=== PATIENT | female | born 1955 | race Caucasian/White ===

== ENCOUNTER 2024-03-01 13:14 | Inpatient (IN) | payer MEDICARE, MEDICAID ==
[~2024-03-01] VITALS: Ht 172.7 cm; Wt 127.5 kg
--- NOTE | 2024-03-01 14:30 | ED.PDOC ---
Musculoskeletal HPI Comments 68-year-old female with PMHx Dermatitis/Cellulitis brought in by EMS presents with a chief complaint of dermatitis and cellulitis to her bilaterally lower extremities and bleeding varicose veins to her left lower extremity. Patient states that the cellulitis and dermatitis has been present for the past x 1 month. Patient has diffuse dermatitis and cellulitis to her bilateral lower legs. Patient is bed bound and not able to apply weight without pain to her legs. Chief Complaint: Lower Extremity Time Seen by MD: 14:02 Primary Care Provider: unknown Reviewed Notes: Medications, Allergies Allergies: Coded Allergies: NO KNOWN ALLERGIES (Unverified , 03/23/10) Information Source: Patient Mode of Arrival: EMS Location: Bilateral Extremity Location: Ankle, Leg Timing: Months Prehospital treatment: None Severity: Severe Able to Move Extremity: Yes Bear Weight: No Pain: Moderate Hand Dominance: Right Mechanism: Spontaneous Circumstances: Spontaneous Symptoms: Swelling, Pain, Erythema DVT Risk Factors: NONE Last Tetanus: Unknown Past Medical History Past Medical History (Other): DERMATITIS Surgical History: Denies all surgeries DIRECTOR DIGITAL CATALOGUE History: Denies all DIRECTOR DIGITAL CATALOGUE Hx Family History Family History: Reviewed,noncontributory to illness Social History Smoker: Non-Smoker Alcohol: Denies ETOH Use Drugs: Denies Drug Use Lives In: Home Constitutional: denies: chills, diaphoresis, fatigue, fever, malaise, sweats, weakness, others EENTM: denies: blurred vision, double vision, ear bleeding, ear discharge, ear drainage, ear pain, ear ringing, eye pain, eye redness, hearing loss, mouth pain, mouth swelling, nasal discharge, nose bleeding, nose congestion, nose pain, photophobia, tearing, throat pain, throat swelling, voice changes, others Respiratory: denies: cough, hemoptysis, orthopnea, SOB at rest, shortness of breath, SOB with excertion, stridor, wheezing, others Cardiovascular: denies: chest pain, dizzy spells, diaphoresis, Dyspnea on exertion, edema, irregular heart beat, left arm pain, lightheadedness, palpitations, PND, syncope, others Gastrointestinal: denies: abdomen distended, abdominal pain, blood streaked bowels, constipated, diarrhea, dysphagia, difficulty swallowing, hematemesis, melena, nausea, poor appetite, poor fluid intake, rectal bleeding, rectal pain, vomiting, others Genitourinary: denies: abnormal vagina bleeding, burning, dyspareunia, dysuria, flank pain, frequency, hematuria, incontinence, pain, , vagina discharge, urgency, others Neurological: denies: dizziness, fainting, headache, left sided numbness, left sided weakness, numbness, paresthesia, pre-existing deficit, right sided numbness, right sided weakness, seizure, speech problems, tingling, tremors, weakness, others Musculoskeletal: denies: back pain, gout, joint pain, joint swelling, muscle pain, muscle stiffness, neck pain, others Integumetry: reports: wounds; denies: bruises, change in color, change in hair/nails, dryness, laceration, lesions, lumps, rash, others Allergic/Immunocompromised: denies: Difficulty Healing, Frequent Infections, Hives, Itching, others Hematologic/Lymphatic: denies: anemia, blood clots, easy bleeding, easy bruising, swollen glands, others Endocrine: denies: excessive hunger, excessive sweating, excessive thirst, excessive urination, flushing, intolerance to cold, intolerance to heat, unexplained weight gain, unexplained weight loss, others Psychiatric: denies: anxiety, bipolar disorder, depression, hopeless, panic disorder, schizophrenia, sleepless, suicidal, others All Other Systems: Reviewed and Negative Physical Exam General Appearance: Moderate Distress, Normal HEENT: Normal ENT Inspection, Pharynx Normal, TMs Normal Neck: Full Range of Motion, Non-Tender, Normal, Normal Inspection Respiratory: Chest Non-Tender, Lungs Clear, No Accessory Muscle Use, No Resp iratory Distress, Normal Breath Sounds Cardiovascular: No Edema, No JVD, No Murmur, No Gallop, Normal Peripheral Pulses, Regular Rate/Rhythm Breast Exam: Deferred Gastrointestinal: No Organomegaly, Non Tender, No Pulsatile Mass, Normal Bowel Sounds, Soft Genitalia: Deferred Pelvic: Deferred Rectal: Deferred Extremities: Decreased range of motion, Pedal edema, Other (DRESSING UNWRAPPED, VERICOSE VEIN OOZING, BLOODY, AND DIFFUSE CELLULITIS BILATERALLY) Musculoskeletal : Apperance: Normal Neurologic: Alert, team leader/research psychologist II-XII nml as Tested, No Motor Deficits, Normal Affect, Normal Mood, No Sensory Deficits Cerebellar Function: Normal Reflexes: Normal Skin: Dry, Normal Color, Warm Lymphatic: No Adenopathy Was a procedure done? Was a procedure done?: No Differential Diagnosis EXT Differential Diagnosis: Cellulitis Other Differential Diagnosis Impetigo, necrotizing fasciitis, sepsis, severe anemia due to acute blood loss, cellulitis X-Ray, Labs, Meds, VS Vital Signs Date Time Temp Pulse Resp B/P (MAP) Pulse Ox O2 Delivery O2 Flow Rate FiO2 03/01/24 15:12 82 18 95 Room Air* 0 21 03/01/24 15:04 98.7 82 17 126/61 (82) 96 98.7 03/01/24 15:04 82 17 96 Room Air 03/01/24 13:29 98.1 88 16 136/72 (93) 100 Lab Test 03/01/24 17:50 03/01/24 15:50 Range/Units Lactic Acid Level Pending 3.2 *H 0.4-2.0 mmol/L White Blood Count 26.5 H 4.4-10.8 10^3/uL Red Blood Count 4.48 4.0-5.20 10^6/uL Hemoglobin 13.1 12.2-16.2 g/dL Hematocrit 40.2 36.0-46.0 % Mean Corpuscular Volume 89.8 80.0-100.0 fL Mean Corpuscular Hemoglobin 29.2 28.0-32.0 pg Mean Corpuscular Hemoglobin Concent 32.5 32.0-36.0 g/dL Red Cell Distribution Width 13.5 11.8-14.3 % Platelet Count 397 140-450 10^3/uL Mean Platelet Volume 7.7 6.9-10.8 fL Neutrophils (%) (Auto) 37.0-80.0 % Lymphocytes (%) (Auto) 10.0-50.0 % Monocytes (%) (Auto) 0.0-12.0 % Eosinophils (%) (Auto) 0.0-7.0 % Basophils (%) (Auto) 0.0-2.0 % Neutrophils # (Auto) 1.6-8.6 10 ^3/uL Lymphocytes # (Auto) 0.4-5.4 10 ^3/uL Monocytes # (Auto) 0-1.3 10 ^3/uL Eosinophils # (Auto) 0-0.8 10 ^3/uL Basophils # (Auto) 0-0.2 10 ^3/uL Differential Total Cells Counted 100.0 100 Neutrophils % (Manual) 89 H 37.0-80.0 Band Neutrophils % (Manual) 0 Lymphocytes % (Manual) 8 L 10.0-50.0 Monocytes % (Manual) 3 0-12 Eosinophils % (Manual) 0 0-7 Basophils % (Manual) 0 0.0-2.0 Metamyelocytes % (manual) 0 Myelocytes % (Manual) 0 Promyelocytes % (Manual) 0 Blast Cells % (Manual) 0 Nucleated Red Blood Cells % Reactive Lymphocytes 0 Platelet Estimate Adequate Sodium Level 132 L 136-145 mmol/L Potassium Level 4.7 3.5-5.1 mmol/L Chloride Level 103 98-107 mmol/L Carbon Dioxide Level 20 20-31 mmol/L Anion Gap 9 5-15 Blood Urea Nitrogen 16 9-23 mg/dL Creatinine 1.04 H 0.550-1.02 mg/dL Glomerular Filtration Rate Calc 58 >90 mL/min BUN/Creatinine Ratio 15.4 10.0-20.0 Serum Glucose 130 H 74-106 mg/dL Calcium Level 9.2 8.7-10.4 mg/dL Total Bilirubin 0.7 0.2-1.0 mg/dL Aspartate Amino Transferase (AST) 24 13-40 U/L Alanine Aminotransferase (ALT) 25 7-40 U/L Alkaline Phosphatase 77 46-116 U/L Total Protein 7.1 5.7-8.2 g/dL Albumin 4.2 3.2-4.8 g/dL Current Medications Medications (Trade) Dose Ordered Sig/Kymberly Route Start Time Stop Time Status Last Admin Vancomycin HCl 250 ml @ 250 mls/hr ONCE ONCE IV 03/01/24 14:45 03/01/24 15:44 DC 03/01/24 14:57 68-year-old female presents here with acute bleed to her left lower extremity. She has active bleeding to the left lower extremity dorsal foot. Diogo and myself have held pressure to the wound to stop bleeding. Additionally patient has evidence of diffuse cellulitis which appears to be infected with impetigo to bilateral lower extremities. She states this has been occurring x1 month and she has not been on antibiotics. I am concerned for acute sepsis. Blood work has been done which demonstrates a leukocytosis of 26. A lactic acid of 3.2,. Patient has been started on vancomycin IV and a 30 cc/kilos bolus has been written for the patient. Patient's blood pressure is stable here. Despite patient's active bleeding, hemoglobin is within normal range at 13.1. However this could be falsely high given the acute nature of the bleed. At this time bleeding has been controlled with pressure. Hospitalist team has been contacted for admission. Time of 1ST Reevaluation: 14:44 Reevaluation 1ST: Unchanged Patient Education/Counseling: Diagnosis, Treatment, Prognosis Family Education/Counseling: Diagnosis, Treatment, Prognosis Departure 1 Departure Time of Disposition: 15:30 Impression: Primary Impression: Bilateral cellulitis of lower leg Additional Impressions: Sepsis Qualified Codes: A41.9 - Sepsis, unspecified organism; R65.20 - Severe sepsis without septic shock Acute hemorrhage Disposition: ADMITTED INPATIENT Condition: Critical Critical Care Note Critical Care Time?: Yes (35 min-critical care time only) Critical care comment: Time spent immediately evaluated the patient given acute hemorrhage, multiple re-evaluation, ordering blood work, interpreting laboratory results, speaking with the patient, speaking to admitting team. Stability Stability form required: No Heart Score Heart Score: Heart Score Response (Comments) Value History N/A 0 EKG N/A 0 Age N/A 0 Risk Factors N/A 0 Troponin N/A 0 Total 0 I personally scribed for NANCY AQUINO MD ([email or web address]) on 03/01/24 at 14:30. Electronically submitted by Denver Richter ([email or web address]). NANCY AQUINO MD Mar 01, 2024 14:30
[2024-03-01] MEDS: VANCOMYCIN 1GM/250ML KIT 250 ML IV ONE (14:57)
[2024-03-01 15:12] VITALS: PULSE 82; RESP 18; O2SAT 95
[2024-03-01 16:05] LABS: Hematocrit 40.2 % (36.0-46.0); Hemoglobin 13.1 g/dL (12.2-16.2); Mean Corpuscular Hemoglobin 29.2 pg (28.0-32.0); Mean Corpuscular Hgb Conc. 32.5 g/dL (32.0-36.0); Mean Corpuscular Volume 89.8 fL (80.0-100.0); Platelet Count (auto) 397 10^3/uL (140-450); Red Blood Cells 4.48 10^6/uL (4.0-5.20); Red Cell Distribution Width 13.5 % (11.8-14.3); White Blood Cell 26.5 10^3/uL (4.4-10.8)
[2024-03-01 16:10] LABS: Band Neutrophils % (manual) 0; Basophils % (manual) 0 (0.0-2.0); Blast Cells 0; Eosinophils % (manual) 0 (0-7); Metamyelocytes % 0; Myelocytes % 0; Promyelocytes % 0; Reactive Lymphocytes 0
[2024-03-01 16:18] LABS: Alanine Aminotransferase 25 U/L (7-40); Albumin 4.2 g/dL (3.2-4.8); Alkaline Phosphatase 77 U/L (46-116); Anion Gap 9 (5-15); Aspartate Aminotransferase 24 U/L (13-40); BUN/Creatinine Ratio 15.4 (10.0-20.0); Bilirubin, Total 0.7 mg/dL (0.2-1.0); Blood Urea Nitrogen 16 mg/dL (9-23); Calcium 9.2 mg/dL (8.7-10.4); Carbon Dioxide 20 mmol/L (20-31); Chloride 103 mmol/L (98-107); Glucose 130 mg/dL (74-106); Potassium 4.7 mmol/L (3.5-5.1); Sodium 132 mmol/L (136-145); Total Protein 7.1 g/dL (5.7-8.2)
[2024-03-01 16:25] LABS: Lactic Acid w/Reflex 3.2 mmol/L (0.4-2.0)
[2024-03-01 16:34] LABS: Lymphocytes % (manual) 8 (10.0-50.0); Monocytes % (manual) 3 (0-12); Platelet Estimate Adequate
[2024-03-01] MEDS: SODIUM CHLORIDE 0.9% 1,000 ML IV ONE ×2 (19:55)
[2024-03-01] MEDS: SODIUM CHLORIDE 0.9% 1,900 ML IV ONE (19:55)
[2024-03-01 20:23] VITALS: O2SAT 96
[2024-03-01] MEDS: MORPHINE SULFATE 4 MG/ML SYR/VIAL IV PRN (22:14)
[2024-03-01] MEDS: ONDANSETRON HCL 4 MG/2 ML VIAL IV PRN (22:15)
--- NOTE | 2024-03-01 22:46 | DVHHPRES ---
History of Present Illness Resident Creating Document: MONET FERRARO RESDIENT History of Present Illness This is a 68-year-old female with past medical history of osteoarthritis of the knee, varicose vein and status dermatitis came to the hospital because of leg swelling and bleeding. Per patient, the patient has bilateral lower limb dermatitis since 5 years which has worsened since 1 month. at the beginning she developed blister on lower limb which later ruptured and start oozing and bleeding. She also complained of bilateral lower limb pain, burning sensation and heaviness. Due to osteoarthritis of the knee the patient has limited mobility but do not use any walker or wheelchair for the mobility. Patient reports, that she follows spiritual therapist recommendation for the dermatitis (ozone therapy), and she has not seen her PCP within last 6 years. Patient denies fever, cough, chest pain, shortness of breath, or any recent changes in bowel and bladder movement. PMHx: Osteoarthritis of the knee, varicose vein and status dermatitis PSHx: 2 Social history: Patient lives with mom at home, ex-smoker, denies any other drug use Home medication: Naproxen (Aleve) for the pain Allergic history: No known allergies Review of Systems Review of Systems General: patient denies fever, fatigue, weaknes, sweating, any recent changes in appetite and weight HEENT: No headaches, visiual changes, hearing loss, tinnitus, nasal congestion and discharge, and sore throat. Cardiovascular: Denies chest pain, palpitations, dyspnea on exertion, orthopnea, or claudication. Respiratory: No cough, and wheezing. Gastrointestinal: Denies nausea, vomiting, dysphagia, odynophagia, heartburn, abdominal pain, flatulence, bloating, diarrhea, constipation, change in stool, or blood in stool. Genitourinary: No dysuria, hematuria, discharge, frequency, urgency, nocturia, incontinence, and urinary retention. Endocrine: No heat or cold intolerance, polydipsia, polyuria, and polyphagia. Neurological: No dizziness, extremity weakness and numbness, tremors, gait disturbance, seizures, and memory impairment. Psychiatric: Denies depression, anxiety,or insomnia. Musculoskeletal: Reports bilateral lower limb pain, burning sensation and heaviness Skin: No rashes, itching, skin lesion, changes in hair, nail, skin texture and breast. Hematologic/Lymphatic: Denies easy bruising, bleeding tendencies, or lymph node enlargement. Allergies: Coded Allergies: NO KNOWN ALLERGIES (Unverified , 03/23/10) Medications Current Medications Medications Dose Ordered Sig/Kymberly Route Start Time Stop Time Status Last Admin Dose Admin Morphine Sulfate 4 mg Q4HPRN PRN IV 03/01/24 21:45 03/01/24 22:14 4 MG Ondansetron HCl 4 mg Q4HPRN PRN IV 03/01/24 21:45 03/01/24 22:15 4 MG Exam Vital Signs Vital Signs Date Time Temp Pulse Resp B/P (MAP) Pulse Ox O2 Delivery O2 Flow Rate FiO2 03/01/24 22:14 83 17 128/45 03/01/24 22:13 95 03/01/24 20:23 Room Air* 0 21 03/01/24 19:30 98.4 98.4 Exam General Appearance: Alert, Oriented X3, Cooperative, No acute distress HEENT: Atraumatic, PERRLA, EOMI, Mucous membrane moist/pink Respiratory: Clear to auscultation, Normal air movement Cardiovascular: Regular rate, Normal S1, Normal S2, No murmurs, no chest wall tenderness Abdominal: Normal bowel sounds, Soft, No tenderness, No hepatospenomegaly, No masses Extremities: Bilateral lower limb from the ankle up to mid gamble are swollen, red, with ruptured vesicle and oozing, on the left side has bleeding Skin: No rashes, No breakdown, No significant lesion Neuro: Normal gait, Normal speech, Strength at 5/5 X4 ext, Normal tone, Sensation intact, Cranial nerves 3-12 NL, Reflexes 2+ Psych/Mental Status: Mental status NL, Mood NL Labs/Xrays Labs Test 03/01/24 17:50 03/01/24 15:50 Range/Units Lactic Acid Level 2.4 *H 0.4-2.0 mmol/L White Blood Count 26.5 H 4.4-10.8 10^3/uL Red Blood Count 4.48 4.0-5.20 10^6/uL Hemoglobin 13.1 12.2-16.2 g/dL Hematocrit 40.2 36.0-46.0 % Mean Corpuscular Volume 89.8 80.0-100.0 fL Mean Corpuscular Hemoglobin 29.2 28.0-32.0 pg Mean Corpuscular Hemoglobin Concent 32.5 32.0-36.0 g/dL Red Cell Distribution Width 13.5 11.8-14.3 % Platelet Count 397 140-450 10^3/uL Mean Platelet Volume 7.7 6.9-10.8 fL Neutrophils (%) (Auto) 37.0-80.0 % Lymphocytes (%) (Auto) 10.0-50.0 % Monocytes (%) (Auto) 0.0-12.0 % Eosinophils (%) (Auto) 0.0-7.0 % Basophils (%) (Auto) 0.0-2.0 % Neutrophils # (Auto) 1.6-8.6 10 ^3/uL Lymphocytes # (Auto) 0.4-5.4 10 ^3/uL Monocytes # (Auto) 0-1.3 10 ^3/uL Eosinophils # (Auto) 0-0.8 10 ^3/uL Basophils # (Auto) 0-0.2 10 ^3/uL Differential Total Cells Counted 100.0 100 Neutrophils % (Manual) 89 H 37.0-80.0 Band Neutrophils % (Manual) 0 Lymphocytes % (Manual) 8 L 10.0-50.0 Monocytes % (Manual) 3 0-12 Eosinophils % (Manual) 0 0-7 Basophils % (Manual) 0 0.0-2.0 Metamyelocytes % (manual) 0 Myelocytes % (Manual) 0 Promyelocytes % (Manual) 0 Blast Cells % (Manual) 0 Nucleated Red Blood Cells % Reactive Lymphocytes 0 Platelet Estimate Adequate Sodium Level 132 L 136-145 mmol/L Potassium Level 4.7 3.5-5.1 mmol/L Chloride Level 103 98-107 mmol/L Carbon Dioxide Level 20 20-31 mmol/L Anion Gap 9 5-15 Blood Urea Nitrogen 16 9-23 mg/dL Creatinine 1.04 H 0.550-1.02 mg/dL Glomerular Filtration Rate Calc 58 >90 mL/min BUN/Creatinine Ratio 15.4 10.0-20.0 Serum Glucose 130 H 74-106 mg/dL Calcium Level 9.2 8.7-10.4 mg/dL Total Bilirubin 0.7 0.2-1.0 mg/dL Aspartate Amino Transferase (AST) 24 13-40 U/L Alanine Aminotransferase (ALT) 25 7-40 U/L Alkaline Phosphatase 77 46-116 U/L Total Protein 7.1 5.7-8.2 g/dL Albumin 4.2 3.2-4.8 g/dL Assessment/Plan Assessment/Plan Cellulitis, on bilateral lower limb from ankle up to the mid gamble Stasis dermatitis History of varicose vein Sepsis, likely due to cellulitis Check bilateral Doppler ultrasound and CT scan Wound/blood culture, and MRSA nares screening Wound consultation Wound Dressing Empiric antibiotic of vancomycin and ceftriaxone IV normal saline Osteoarthritis of the knee Pain management Mild hyponatremia Monitoring DIET: Cardiac diet DVT PROPHYLAXIS: Lovenox CODE STATUS: Goal of care discussed for more than 23 minutes, DNR DISPOSITION: Med/surge Patient's status and paln discussed with the patient. Case discussed with Dr. Hamm Plan discussed with: Patient, Other My Orders Orders - MONET FERRARO Procedure Category Date Status Time Admit ADMIT 03/01/24 Verified 22:45 Stat Ekg For Chest [facility] 03/01/24 Verified Pain 22:45 Notify Md Of Changes [facility] 03/01/24 Verified From Base 22:45 Date of Service: Mar 01, 2024 Billing Provider: ARNOLD HAMM MD Common Visit Codes: 12997-OTELZNC INP/OBS CARE (HIGH) Secondary Visit Codes: 20060-RACBSFKY CARE PLAN 30 MINUTES MONET FERRARO RESDIENT Mar 01, 2024 22:46 ARNOLD HAMM MD Mar 03, 2024 00:19
[2024-03-01 23:00] VITALS: O2SAT 96
[2024-03-02] MEDS ORDERED: VANCOMYCIN PER PHARMACY 0 MG IV SCH (00:30)
[2024-03-02] MEDS: ENOXAPARIN SOD 40 MG/0.4 ML SYRINGE SC ONE (01:20)
[2024-03-02 01:44] LABS: Triglycerides 80 mg/dL (< 150)
[2024-03-02 01:45] LABS: LDL Cholesterol 83 mg/dL (< 100)
[2024-03-02 01:46] LABS: Cholesterol 123 mg/dL (< 200)
[2024-03-02 01:48] LABS: HDL Cholesterol 34 mg/dL (40-59)
[2024-03-02] MEDS: SODIUM CHLORIDE 0.9% 1,000 ML IV ONE (01:51)
[2024-03-02 02:32] LABS: Urine Bacteria FEW /hpf (None Seen); Urine Blood 2+ /uL (Negative); Urine Clarity Turbid (Clear); Urine Color Yellow (Yellow); Urine Mucus FEW (None Seen); Urine Protein, UAD 1+ (Negative); Urine Specific Gravity 1.039 (1.001-1.035); Urine Squamous Epithelial Cell FEW /hpf (<5); Urine Urobilinogen Normal (Negative); Urine WBC 2 /HPF (0-5); Urine pH 5.5 (5.0-9.0)
--- NOTE | 2024-03-02 04:22 | DVH ---
Clinical History: Swollen legs Comparison: None Technique: Duplex Doppler evaluation of the deep venous system of the right and left lower extremity from the co mmon femoral vein to the popliteal vein including color Doppler and spectral/pulsed waveform analysis was performed. Findings: The common femoral vein demonstrates appropriate compressibility and waveform variability. There is compressibility/patency of the great saphenous vein at the proximal thigh. The femoral vein demonstrates appropriate compressibility and waveform variability. The deep femoral vein demonstrates appropriate compressibility and waveform variability. The popliteal vein demonstrates appropriate compressibility and waveform variability. There is normal compressibility at the tibioperoneal trunk. Impression: 1. No right or left deep venous thrombosis. 2. If clinical concern/symptoms persist or worsen, short-interval follow-up study is suggested.
--- NOTE | 2024-03-02 04:24 | DVH ---
CHEST RADIOGRAPH Indication: pneumonia Technique: Single frontal view of the chest was obtained Comparison: None IMPRESSION: The heart is enlarged. Mild pulmonary vascular congestion. No focal airspace opacity, effusion, or p neumothorax.
--- NOTE | 2024-03-02 04:35 | DVH ---
INDICATION: leg sweeling COMPARISON: Ultrasound same day TECHNIQUE: Noncontrast CT imaging of the right and left tibia and fibula and right and left ankle wer e obtained with multi planar reformatted images. All CT scans at this medical facility are performed using dose modulation techniques as appropriate t o a performed exam including the following: Automated exposure control was utilized; adjustment of th e MA and/or KV according to patient size; and use of iterative reconstruction technique. Radiation Dose: DLP 174.1 +174.1 +453.5 +445.2 mGy.cm FINDINGS: No discrete fracture or dislocation in either imaged lower extremity. There are moderate degenerative changes of the bilateral knees with tricompartmental osteoarthropathy. No evidence of effusion. Bila teral subcutaneous edema predominantly at the ankle and foot. There are bilateral superficial venous varicosities, [id number]. IMPRESSION: 1. No acute findings. 2. Bilateral moderate tricompartmental osteoarthropathy of the knees and mild degenerative changes at the ankle. 3. Subcutaneous soft tissue edema with bilateral superficial venous varicosities. HS:Y
[2024-03-02 05:35] LABS: Basophils # (auto) 0 10 ^3/uL (0-0.2); Basophils % (auto) 0.1 % (0.0-2.0); Eosinophils # (auto) 0 10 ^3/uL (0-0.8); Eosinophils % (auto) 0.1 % (0.0-7.0); Hematocrit 32.3 % (36.0-46.0); Hemoglobin 10.5 g/dL (12.2-16.2); Lymphocytes # (auto) 1.7 10 ^3/uL (0.4-5.4); Lymphocytes % (auto) 7.4 % (10.0-50.0); Mean Corpuscular Hemoglobin 28.6 pg (28.0-32.0); Mean Corpuscular Hgb Conc. 32.4 g/dL (32.0-36.0); Mean Corpuscular Volume 88.2 fL (80.0-100.0); Monocytes # (auto) 2.7 10 ^3/uL (0-1.3); Monocytes % (auto) 12.1 % (0.0-12.0); Neutrophils # (auto) 18.2 10 ^3/uL (1.6-8.6); Neutrophils % (auto) 80.3 % (37.0-80.0); Platelet Count (auto) 321 10^3/uL (140-450); Red Blood Cells 3.66 10^6/uL (4.0-5.20); Red Cell Distribution Width 13.7 % (11.8-14.3); White Blood Cell 22.7 10^3/uL (4.4-10.8)
[2024-03-02 05:59] LABS: Alanine Aminotransferase 34 U/L (7-40); Albumin 3.4 g/dL (3.2-4.8); Alkaline Phosphatase 61 U/L (46-116); Anion Gap 8 (5-15); BUN/Creatinine Ratio 25.6 (10.0-20.0); Bilirubin, Total 0.6 mg/dL (0.2-1.0); Blood Urea Nitrogen 20 mg/dL (9-23); Carbon Dioxide 23 mmol/L (20-31); Chloride 104 mmol/L (98-107)
[2024-03-02 06:04] LABS: Aspartate Aminotransferase 96 U/L (13-40); Calcium 8.7 mg/dL (8.7-10.4); Glucose 123 mg/dL (74-106); Potassium 5.1 mmol/L (3.5-5.1); Sodium 135 mmol/L (136-145); Total Protein 5.7 g/dL (5.7-8.2)
[2024-03-02 07:41] VITALS: O2SAT 99
[2024-03-02] MEDS: cefTRIAXone 1GM/50ML D5W 50 ML IV SCH (08:58)
[2024-03-02] MEDS: ENOXAPARIN SOD 40 MG/0.4 ML SYRINGE SC SCH (11:05)
--- NOTE | 2024-03-02 11:48 | DVH ---
Bilateral Lower Extremity Arterial Duplex Clinical History: swollen legs and ulcers Comparison: None Technique: Duplex doppler evaluation including color doppler and spectral/pulsed waveform analysis of the lower extremity arteries was performed. Findings: Monophasic flow form seen in both lower extremities Vessels not visualized below the knees secondary to wrapping of the legs and wounds. Technically difficult study secondary to patient body habitus and edema Impression: Abnormal monophasic waveforms in both lower extremities as discussed above. Limited exam. CT angiography could be performed for further assessment if clinically indicated. REFERENCE VALUES, [facility] ([facility]) vascular Imaging Lab Criteria: Peak systolic velocity ranges (in cm/sec) are as follows: <150 cm/s - <20 % stenosis 150-200 cm/s - 20-49% stenosis 200-300 cm/s - 50-75% stenosis >300 cm/s -> 75% stenosis
[2024-03-02 11:50] VITALS: PULSE 81; RESP 12; O2SAT 99
[2024-03-02] MEDS ORDERED: DEXTROSE (50%) 50ML SYRG IV PRN (12:00)
[2024-03-02] MEDS: VANCOMYCIN 1GM/250ML KIT 250 ML IV SCH (13:09)
[2024-03-02] MEDS: SODIUM CHLORIDE 0.9% 500 ML IV ONE (13:10)
--- NOTE | 2024-03-02 13:40 | DVHPNRES ---
Progress Note Date Seen: Mar 02, 2024 Resident Creating Document: SARAH WASSERMAN RESIDENT Has the PT tested + for MRSA If YES, has PT been informed?: No Medical Necessity Reason Pt with a Central, PICC or Fol: No Medical Necessity Reason Chronic dermatitis Cellulitis Varicose vein Subjective Review of Systems This is a 68-year-old female with past medical history of osteoarthritis of the knee, varicose vein and status dermatitis came to the hospital because of leg swelling, open wounds and bleeding. Per patient, she has had bilateral lower limb dermatitis for the past 5 year that became worse over the 1 months. At first, she developed blister on lower limb which later ruptured and start oozing and bleeding on the left leg. She also complained of bilateral lower limb pain, burning sensation and heaviness. Due to osteoarthritis of the knee, she is limited in he mobility and uses a walker or wheelchair for the mobility. Patient reports, that she follows spiritual therapist recommendation for the dermatitis (ozone therapy), and she has not seen her PCP within last 6 years. Patient denies fever, cough, chest pain, shortness of breath, or any recent changes in bowel and bladder movement. Initial vitals revealed temperature of 98.4, pulse of 83, respirations 17 blood pressure 12601/45 pulse oximetry was 95 on room air. Lab work revealed WBC of 26.5, with a hemoglobin of 40.2 lactic acid of 3.2. HISTORY DOPPLER was negative for DVT. CT legs shows Bilateral moderate tricompartmental osteoarthropathy of the knees and mild degenerative changes at the ankle. Constitutional: chills,but no fever HEENT: Denies headache, ear pain, ear discharges, conjunctivitis, nasal discharge throat pain Cardiovascular: Denies chest pain, palpitation, orthopnea, PND, or pedal edema Respiratory: Denies shortness of breath, cough cough, sputum production, hemoptysis, GI: Denies abdominal pain, nausea, vomiting, diarrhea, hematemesis, hematochezia, : Denies frequency, urgency, hematuria, Endocrine: Denies unintentional weight gain or weight loss, feeling of hot flashes, Franki: Denies easy bruising, bleeding disorders, epistaxis Musculoskeletal: bilateral leg pains, aches Psych: No evidence of depression, moustapha, suicidal ideation Objective vital signs Vital Sign Date Time Temp Pulse Resp B/P (MAP) Pulse Ox O2 Delivery O2 Flow Rate FiO2 1/25/25 11:36 76 20 111/35 03/02/24 11:00 100 03/02/24 07:41 Nasal Cannula* 3 32 03/02/24 07:41 98.6 98.6 Total Intake and Output 03/01/24 03/01/24 03/02/24 15:00 23:00 07:00 Intake Total 1900 ml 375 ml Output Total 200 ml Balance 1900 ml 175 ml medications Current Medications Medications Dose Ordered Sig/Kymberly Route Start Time Stop Time Status Last Admin Dose Admin Morphine Sulfate 4 mg Q4HPRN PRN IV 03/01/24 21:45 03/02/24 11:06 4 MG Ondansetron HCl 4 mg Q4HPRN PRN IV 03/01/24 21:45 03/01/24 22:15 4 MG Vancomycin HCl 0 ml @ 0 mls/hr UD IV 03/02/24 00:30 Ceftriaxone Sodium 50 ml @ 100 mls/hr DAILY@09 IV 03/02/24 09:00 03/02/24 08:58 100 MLS/HR Enoxaparin Sodium 40 mg DAILY SC 03/03/24 10:00 03/02/24 11:05 40 MG Acetaminophen 650 mg Q6HP PRN PO 03/02/24 00:30 Acetaminophen/ Hydrocodone Bitart 1 tab Q6HPRN PRN PO 03/02/24 00:30 Vancomycin HCl 250 ml @ 250 mls/hr Q12H IV 03/02/24 12:00 03/02/24 13:09 250 MLS/HR Dextrose 50 ml UD PRN IV 03/02/24 12:00 Cancel Examination General Appearance: Alert, Oriented X3, Cooperative, No acute distress HEENT: Atraumatic, PERRLA, EOMI, Mucous membrane moist/pink Respiratory: Clear to auscultation, Normal air movement Cardiovascular: Regular rate, Normal S1, Normal S2, No murmurs, no chest wall tenderness Abdominal: NO distention, no tenderness, bowel sounds present, no scars noted Extremities: wrapped in gauze, swollen and red up to midshin, red with multiple open sores; left leg has blood on the foot and toes from the rupture varicose vein. bilateral discharges Skin: No rashes, No breakdown, No significant lesion Neuro: Normal gait, Normal speech, Strength at 5/5 X4 ext, Normal tone, Sensation intact, Cranial nerves 3-12 NL, Reflexes 2+ Psych/Mental Status: Mental status NL, Mood NL laboratory and microbiology Laboratory Tests 03/02/24 05:07 Test 03/02/24 05:07 Range/Units Serum Glucose 123 H 74-106 mg/dL Labs and/or images reviewed: Labs reviewed by me, Image(s) reviewed by me Problem List/Assessment/Plan Problem List/Assessment/Plan Assessment Sepsis secondary to cellulitis , bilateral Cellulitis, on bilateral lower limb from ankle up to the mid gamble Stasis dermatitis Bleeding varicose vein Morbid obesity BMI 44.2 Acidosis Osteoarthritis of the knee Hyperglycemia Plan Continue Vancomycin and ceftriaxone IV normal saline bolus and maintenance Wound care consult Wound Dressing Pain management Check A1c repeat CBC and CMP in the morning Diet: Regular DVT prophylaxis: LOVENOX Code status: DNR Goal of care discussed for 20 minutes Case and plan discussed and reviewed with Dr. Mccann Plan discussed with: Patient, Other (RN) Addendum Addendum Addendum I was physically present for the batista portions of the service provided to patient by THE RESIDENT. I have reviewed the documentation, discussed the case with resident and agree with the resident's documentation except as noted. Also the patient's clinical case was discussed with the patient's nurse. This medical document was created using an electronic medical record system with computerized dictation system. Although this document has been carefully reviewed, there might still be some phonetic and typographical errors. These areas are purely typographical due to imperfections of the software programs, and do not reflect any compromise in the patient's medical care. Late signature. Date of Service: Mar 02, 2024 Billing Provider: ZENAIDA MCCANN MD Common Visit Codes: [id number] INP/OBS CARE(HIGH) Secondary Visit Codes: [id number] CARE PLAN 30 MINUTES (20 minutes) SARAH WASSERMAN RESIDENT Mar 02, 2024 13:40 ZENAIDA MCCANN MD Mar 03, 2024 22:03
[2024-03-02] MEDS ORDERED: InsuLIN REG 1unit/0.01ml Soln (100units/ml) SC SCH (17:00)
[2024-03-02] MEDS ORDERED: ACCU-CHEK COMFORT CURVE STRIP VI SCH (17:00)
[2024-03-02 18:38] VITALS: BP 122/60; PULSE 91; RESP 16; TEMP 98.7; O2SAT 96
[2024-03-02 19:38] VITALS: PULSE 91; RESP 16; O2SAT 98
[2024-03-02 21:00] VITALS: BP 132/53; PULSE 85; RESP 20; TEMP 99; O2SAT 99
[2024-03-03] VITALS (8 sets, daily range): BP systolic 106–139; BP diastolic 36–59; PULSE 69–84; RESP 14–20; TEMP 97.7–98.9; O2SAT 94–99
[2024-03-03] MEDS ORDERED: NAPR220C PO (05:45)
[2024-03-03 06:59] LABS: Basophils # (auto) 0 10 ^3/uL (0-0.2); Basophils % (auto) 0.4 % (0.0-2.0); Eosinophils # (auto) 0.1 10 ^3/uL (0-0.8); Eosinophils % (auto) 0.5 % (0.0-7.0); Hematocrit 26.4 % (36.0-46.0); Hemoglobin 8.6 g/dL (12.2-16.2); Lymphocytes # (auto) 1.8 10 ^3/uL (0.4-5.4); Lymphocytes % (auto) 13.6 % (10.0-50.0); Mean Corpuscular Hemoglobin 28.9 pg (28.0-32.0); Mean Corpuscular Hgb Conc. 32.7 g/dL (32.0-36.0); Mean Corpuscular Volume 88.5 fL (80.0-100.0); Monocytes # (auto) 2.1 10 ^3/uL (0-1.3); Monocytes % (auto) 15.5 % (0.0-12.0); Neutrophils # (auto) 9.4 10 ^3/uL (1.6-8.6); Platelet Count (auto) 264 10^3/uL (140-450); Red Blood Cells 2.99 10^6/uL (4.0-5.20); Red Cell Distribution Width 13.7 % (11.8-14.3); White Blood Cell 13.4 10^3/uL (4.4-10.8)
[2024-03-03 07:20] LABS: Alanine Aminotransferase 33 U/L (7-40); Albumin 3.2 g/dL (3.2-4.8); Alkaline Phosphatase 52 U/L (46-116); Anion Gap 6 (5-15); BUN/Creatinine Ratio 21.9 (10.0-20.0); Blood Urea Nitrogen 16 mg/dL (9-23); Carbon Dioxide 28 mmol/L (20-31); Chloride 103 mmol/L (98-107); Potassium 4.6 mmol/L (3.5-5.1); Sodium 137 mmol/L (136-145)
[2024-03-03 07:24] LABS: Aspartate Aminotransferase 65 U/L (13-40); Bilirubin, Total 0.3 mg/dL (0.2-1.0); Calcium 8.6 mg/dL (8.7-10.4); Glucose 108 mg/dL (74-106); Total Protein 5.3 g/dL (5.7-8.2)
[2024-03-03] MEDS ORDERED: LOSARTAN POTASSIUM 25 MG TAB PO SCH (10:00)
--- NOTE | 2024-03-03 10:34 | DVHPN2 ---
Subjective Decreased lower extremities pain Reviewed: Care Plan, H&P, Labs, Medications, Previous Orders, Radiology Changes from previous H/P or p: Changes Objective Vitals Vital Signs Date Time Temp Pulse Resp B/P (MAP) Pulse Ox O2 Delivery O2 Flow Rate FiO2 03/03/24 09:00 98.6 77 18 139/50 (79) 94 98.6 03/03/24 08:30 Room Air* 0 21 Intake/Output Intake and Output 03/03/24 07:00 Intake Total 1768.75 ml Output Total 550 ml Balance 1218.75 ml Intake Oral 200 ml IV Total 1568.75 ml Output Urine Total 550 ml General Appearance: Alert, Oriented X3, Cooperative, No acute distress, Other (Morbidly obese) HEENT: Atraumatic Lungs: Clear to auscultation, Normal air movement Cardiovascular: Regular rate, Normal S1, Normal S2 Abdomen: Normal bowel sounds, Soft, No tenderness Genitourinary: Other (Whitehead's) Neuro: Normal speech, Cranial nerves 3-12 NL Skin: Other (Dressed lower extremities) Psych/Mental Status: Mental status NL, Mood NL Medications Current Medications Medications Dose Ordered Sig/Kymberly Route Start Time Stop Time Status Last Admin Dose Admin Morphine Sulfate 4 mg Q4HPRN PRN IV 03/01/24 21:45 03/03/24 05:39 4 MG Ondansetron HCl 4 mg Q4HPRN PRN IV 03/01/24 21:45 03/01/24 22:15 4 MG Vancomycin HCl 0 ml @ 0 mls/hr UD IV 03/02/24 00:30 Ceftriaxone Sodium 50 ml @ 100 mls/hr DAILY@09 IV 03/02/24 09:00 03/02/24 08:58 100 MLS/HR Acetaminophen 650 mg Q6HP PRN PO 03/02/24 00:30 Acetaminophen/ Hydrocodone Bitart 1 tab Q6HPRN PRN PO 03/02/24 00:30 Vancomycin HCl 250 ml @ 250 mls/hr Q12H IV 03/02/24 12:00 03/03/24 00:15 250 MLS/HR Dextrose 50 ml UD PRN IV 03/02/24 12:00 Cancel Enoxaparin Sodium 40 mg DAILY SC 03/03/24 10:00 Laboratory Results Laboratory Tests 03/03/24 06:11 Chemistry Test 03/03/24 06:11 Albumin 3.2 g/dL (3.2-4.8) Calcium Level 8.6 mg/dL (8.7-10.4) L Total Protein 5.3 g/dL (5.7-8.2) L LFT Test 03/03/24 06:11 Alanine Aminotransferase (ALT) 33 U/L (7-40) Alkaline Phosphatase 52 U/L (46-116) Aspartate Amino Transferase (AST) 65 U/L (13-40) H Total Bilirubin 0.3 mg/dL (0.2-1.0) Urinalysis Test 03/02/24 01:48 Urine Color Yellow (Yellow) Urine Clarity Turbid (Clear) H Urine pH 5.5 (5.0-9.0) Urine Specific Elrod 1.039 (1.001-1.035) Urine Protein 1+ (Negative) H Urine Ketones 1+ (Negative) H Urine Blood 2+ /uL (Negative) H Urine Nitrite Negative (Negative) Urine Bilirubin Negative (Negative) Urine Urobilinogen Normal mg/dL (Negative) Urine Leukocyte Esterase Negative /uL (Negative) Urine RBC 15 /hpf (0 - 4) Urine Microscopic WBC 2 /HPF (0-5) Urine Squamous Epithelial Cells Few /hpf (<5) Urine Bacteria Few /hpf (None Seen) H Urine Mucus Few (None Seen) Urine Glucose Normal mg/dL (Normal) Microbiology Microbiology Date/Time Source Procedure Growth Status 03/02/24 05:20 Foot Gram Stain Pending Resulted 03/02/24 05:20 Foot Wound Culture - Preliminary Resulted 03/02/24 03:35 Voided Urine Urine Culture - Preliminary Resulted 03/01/24 15:50 Blood Blood Culture - Preliminary NO GROWTH AFTER 24 HOURS OF INCUBATION. Resulted Labs and/or images reviewed: Labs reviewed by me, Image(s) reviewed by me Assessment/Plan Assessment/Plan Covering Dr. Mario: #Sepsis with leukocytosis and lactic acidosis; secondary to bilateral lower extremities cellulitis #Bilateral lower extremity cellulitis in the setting of stasis dermatitis secondary to symptomatic varicose vein #Bleeding from varicose pain causing blood loss anemia; stopped bleeding at this time #Blood loss anemia; dropping hemoglobin level #Lower extremities pain due to above #Suspected BAILEY due to sepsis; most likely vasomotor nephropathy #Elevated LFTs due to sepsis Reviewed urine, blood, and wound cultures; wound cultures still growing pathogens Continue broad-spectrum IV antibiotics Avoid nephrotoxic agents Avoid hepatotoxic agents Continue IV fluids Continue insulin sliding scale with hypoglycemia protocol Adjust pain medications as indicated Wound care is following Closely monitor hemoglobin level On DVT prophylaxis Continue monitoring Late Entry. This medical document was created using an electronic medical record system with computerized dictation system. Although this document has been carefully reviewed, there might still be some phonetic and typographical errors. These areas are purely typographical due to imperfections of the software programs, and do not reflect any compromise in the patient's medical care. Plan discussed with: Patient, Other (Nurse; sister) Date of Service: Mar 03, 2024 Billing Provider: ZENAIDA MCCANN MD Common Visit Codes: [id number] INP/OBS CARE(HIGH) ZENAIDA MCCANN MD Mar 03, 2024 10:34
[2024-03-03] MEDS: ENOXAPARIN SOD 40 MG/0.4 ML SYRINGE SC SCH (11:04)
[2024-03-03] MEDS: HYDROcodone-ACET 5/325MG TAB PO PRN (13:35)
[2024-03-04] VITALS (7 sets, daily range): BP systolic 104–143; BP diastolic 36–77; PULSE 66–78; RESP 16–20; TEMP 97.3–99.1; O2SAT 92–99
[2024-03-04 07:22] LABS: Basophils # (auto) 0.1 10 ^3/uL (0-0.2); Basophils % (auto) 0.5 % (0.0-2.0); Eosinophils # (auto) 0.1 10 ^3/uL (0-0.8); Hematocrit 26.3 % (36.0-46.0); Hemoglobin 8.9 g/dL (12.2-16.2); Mean Corpuscular Hemoglobin 29.6 pg (28.0-32.0); Mean Corpuscular Hgb Conc. 33.7 g/dL (32.0-36.0); Mean Corpuscular Volume 87.9 fL (80.0-100.0); Monocytes # (auto) 1.4 10 ^3/uL (0-1.3); Monocytes % (auto) 12.3 % (0.0-12.0); Neutrophils # (auto) 7.6 10 ^3/uL (1.6-8.6); Neutrophils % (auto) 68.2 % (37.0-80.0); Platelet Count (auto) 273 10^3/uL (140-450); Red Blood Cells 2.99 10^6/uL (4.0-5.20); Red Cell Distribution Width 13.5 % (11.8-14.3); White Blood Cell 11.1 10^3/uL (4.4-10.8)
[2024-03-04 07:39] LABS: Alanine Aminotransferase 29 U/L (7-40); Albumin 3.3 g/dL (3.2-4.8); Alkaline Phosphatase 56 U/L (46-116); Anion Gap 7 (5-15); BUN/Creatinine Ratio 22.7 (10.0-20.0); Blood Urea Nitrogen 15 mg/dL (9-23); Carbon Dioxide 27 mmol/L (20-31); Chloride 104 mmol/L (98-107); Glucose 99 mg/dL (74-106); Potassium 4.1 mmol/L (3.5-5.1); Sodium 138 mmol/L (136-145)
[2024-03-04 07:45] LABS: Aspartate Aminotransferase 45 U/L (13-40); Bilirubin, Total 0.2 mg/dL (0.2-1.0); Calcium 8.7 mg/dL (8.7-10.4); Total Protein 5.5 g/dL (5.7-8.2)
[2024-03-04] MEDS: SODIUM CHLORIDE 0.9% 500 ML IV ONE (18:16)
[2024-03-04] MEDS: SODIUM CHLORIDE 0.9% 1,000 ML IV ONE (20:00)
--- NOTE | 2024-03-04 20:00 | DVHPNRES ---
Progress Note Date Seen: Mar 04, 2024 Resident Creating Document: SARAH WASSERMAN RESIDENT Has the PT tested + for MRSA If YES, has PT been informed?: No Medical Necessity Reason Pt with a Central, PICC or Fol: No Medical Necessity Reason leg pains, bilaterally Subjective Review of Systems This is a 68-year-old female with past medical history of osteoarthritis of the knee, varicose vein and status dermatitis came to the hospital because of leg swelling, open wounds and bleeding. Per patient, she has had bilateral lower limb dermatitis for the past 5 year that became worse over the 1 months. At first, she developed blister on lower limb which later ruptured and start oozing and bleeding on the left leg. She also complained of bilateral lower limb pain, burning sensation and heaviness. Due to osteoarthritis of the knee, she is limited in he mobility and uses a walker or wheelchair for the mobility. Patient reports, that she follows spiritual therapist recommendation for the dermatitis (ozone therapy), and she has not seen her PCP within last 6 years. Patient denies fever, cough, chest pain, shortness of breath, or any recent changes in bowel and bladder movement. Initial vitals revealed temperature of 98.4, pulse of 83, respirations 17 blood pressure 56698/45 pulse oximetry was 95 on room air. Lab work revealed WBC of 26.5, with a hemoglobin of 40.2 lactic acid of 3.2. HISTORY DOPPLER was negative for DVT. CT legs shows Bilateral moderate tricompartmental osteoarthropathy of the knees and mild degenerative changes at the ankle. PN 03/04/2024: Patient seen and examined. She is not in any acute distress. Seen by wound care and wounds are covered. labs shows improving wbc: 11.1 and she is on vancomycin and Cefepime. Objective vital signs Vital Sign Date Time Temp Pulse Resp B/P (MAP) Pulse Ox O2 Delivery O2 Flow Rate FiO2 03/04/24 17:00 99.1 70 16 111/36 (61) 97 99.1 03/04/24 08:15 Nasal Cannula* 2 28 Total Intake and Output 03/03/24 03/03/24 03/04/24 15:00 23:00 07:00 Intake Total 300 ml 800 ml 350 ml Output Total 650 ml 600 ml Balance 300 ml 150 ml -250 ml medications Current Medications Medications Dose Ordered Sig/Kymberly Route Start Time Stop Time Status Last Admin Dose Admin Morphine Sulfate 4 mg Q4HPRN PRN IV 03/01/24 21:45 03/04/24 05:11 4 MG Ondansetron HCl 4 mg Q4HPRN PRN IV 03/01/24 21:45 03/01/24 22:15 4 MG Vancomycin HCl 0 ml @ 0 mls/hr UD IV 03/02/24 00:30 Ceftriaxone Sodium 50 ml @ 100 mls/hr DAILY@09 IV 03/02/24 09:00 03/04/24 09:00 100 MLS/HR Acetaminophen 650 mg Q6HP PRN PO 03/02/24 00:30 Acetaminophen/ Hydrocodone Bitart 1 tab Q6HPRN PRN PO 03/02/24 00:30 03/04/24 16:20 1 TAB Vancomycin HCl 250 ml @ 250 mls/hr Q12H IV 03/02/24 12:00 03/04/24 12:03 250 MLS/HR Dextrose 50 ml UD PRN IV 03/02/24 12:00 Cancel Enoxaparin Sodium 40 mg DAILY SC 03/03/24 10:00 03/04/24 09:01 40 MG Hydromorphone HCl 2 mg DAILY PRN IV 03/03/24 21:00 Examination General Appearance: Alert, Oriented X3, Cooperative, No acute distress HEENT: Atraumatic, PERRLA, EOMI, Mucous membrane moist/pink Respiratory: Clear to auscultation, Normal air movement Cardiovascular: Regular rate, Normal S1, Normal S2, No murmurs, no chest wall tenderness Abdominal: NO distention, no tenderness, bowel sounds present, no scars noted Extremities: both wrap without any notable discharge. Skin: No rashes, No breakdown, No significant lesion Neuro: Normal gait, Normal speech, Strength at 5/5 X4 ext, Normal tone, Sensation intact, Cranial nerves 3-12 NL, Reflexes 2+ Psych/Mental Status: Mental status NL, Mood NL laboratory and microbiology Laboratory Tests 03/04/24 06:30 Test 03/04/24 06:30 Range/Units Serum Glucose 99 74-106 mg/dL Microbiology Date/Time Source Procedure Growth Status 03/02/24 05:20 Foot Gram Stain - Final Resulted 03/02/24 05:20 Foot Wound Culture - Preliminary Resulted 03/02/24 03:35 Voided Urine Urine Culture - Final Complete 03/01/24 15:50 Blood Blood Culture - Preliminary NO GROWTH AFTER 72 HOURS OF INCUBATION. Resulted Problem List/Assessment/Plan Problem List/Assessment/Plan Assessment Sepsis secondary to cellulitis, bilateral Cellulitis, on bilateral lower limb from ankle up to the mid gambel Stasis dermatitis Bleeding varicose vein History of varicose vein Morbid obesity BMI 44.2 Acidosis Mild hyponatremia Osteoarthritis of the knee Hyperglycemia Plan Continue Vancomycin and ceftriaxone IV normal saline bolus and maintenance Wound care consult Wound Dressing Pain management Check A1c repeat cbc and cmp in the morning Diet: Regular DVT prophylasix: LOVENOX Code status: DNR Goal of care discussed for more than 35 minutes Case and plan discussed and reviewed with Dr. Cantrell Plan discussed with: Patient Dietary Evaluation Review Recommendations by RD: Protein Supplementation Comments: 1) Initiate Titus @ 1 pk bid 2) Initiate vitamin C @ 500 mg bid 3) Initiate zinc sulfate @ 220 mg qd 4) Continue to promote good PO intake and monitor wound Expected Outcomes/Goals: 1) appetite and labs to improve 2) skin integrity to improve 3) f/u in 3-5 days Date of Service: Mar 04, 2024 Billing Provider: ONIEL VICTORIA MD Common Visit Codes: [id number] INP/OBS CARE(HIGH) SARAH WASSERMAN RESIDENT Mar 04, 2024 20:00 ONIEL VICTORIA MD Mar 05, 2024 10:19
[2024-03-05] VITALS (7 sets, daily range): BP systolic 110–137; BP diastolic 39–97; PULSE 56–74; RESP 17–20; TEMP 98.1–98.6; O2SAT 95–100
[2024-03-05 07:09] LABS: Anion Gap 5 (5-15); Carbon Dioxide 30 mmol/L (20-31); Chloride 103 mmol/L (98-107); Potassium 4.1 mmol/L (3.5-5.1); Sodium 138 mmol/L (136-145)
[2024-03-05 07:10] LABS: Basophils # (auto) 0.1 10 ^3/uL (0-0.2); Basophils % (auto) 0.5 % (0.0-2.0); Calcium 8.8 mg/dL (8.7-10.4); Eosinophils # (auto) 0.2 10 ^3/uL (0-0.8); Eosinophils % (auto) 2.1 % (0.0-7.0); Hematocrit 25.1 % (36.0-46.0); Hemoglobin 8.4 g/dL (12.2-16.2); Lymphocytes # (auto) 1.6 10 ^3/uL (0.4-5.4); Lymphocytes % (auto) 15.1 % (10.0-50.0); Mean Corpuscular Hemoglobin 29.4 pg (28.0-32.0); Mean Corpuscular Hgb Conc. 33.4 g/dL (32.0-36.0); Monocytes # (auto) 1.2 10 ^3/uL (0-1.3); Monocytes % (auto) 11.3 % (0.0-12.0); Neutrophils # (auto) 7.6 10 ^3/uL (1.6-8.6); Nucleated Red Blood Cells % 0.1 %; Platelet Count (auto) 295 10^3/uL (140-450); Red Blood Cells 2.85 10^6/uL (4.0-5.20); Red Cell Distribution Width 13.7 % (11.8-14.3); White Blood Cell 10.7 10^3/uL (4.4-10.8)
[2024-03-05 07:15] LABS: BUN/Creatinine Ratio 18.3 (10.0-20.0); Blood Urea Nitrogen 11 mg/dL (9-23); Glucose 96 mg/dL (74-106)
[2024-03-05] MEDS: KETOROLAC TROMETH 30 MG/ML 1ML VIAL IV PRN (15:34)
--- NOTE | 2024-03-05 15:52 | DVHPNRES ---
Progress Note Date Seen: Mar 05, 2024 Resident Creating Document: SARAH WASSERMAN RESIDENT Has the PT tested + for MRSA If YES, has PT been informed?: No Medical Necessity Reason Pt with a Central, PICC or Fol: No Medical Necessity Reason STASIS DERMATITIS BILATERAL CELLULITIS Subjective Review of Systems This is a 68-year-old female with past medical history of osteoarthritis of the knee, varicose vein and status dermatitis came to the hospital because of leg swelling, open wounds and bleeding. Per patient, she has had bilateral lower limb dermatitis for the past 5 year that became worse over the 1 months. At first, she developed blister on lower limb which later ruptured and start oozing and bleeding on the left leg. She also complained of bilateral lower limb pain, burning sensation and heaviness. Due to osteoarthritis of the knee, she is limited in he mobility and uses a walker or wheelchair for the mobility. Patient reports, that she follows spiritual therapist recommendation for the dermatitis (ozone therapy), and she has not seen her PCP within last 6 years. Patient denies fever, cough, chest pain, shortness of breath, or any recent changes in bowel and bladder movement. Initial vitals revealed temperature of 98.4, pulse of 83, respirations 17 blood pressure 128/45, and pulse oximetry was 95 on room air. Lab work revealed WBC of 26.5, with a hemoglobin of 40.2 lactic acid of 3.2. HISTORY DOPPLER was negative for DVT. CT legs shows Bilateral moderate tricompartmental osteoarthropathy of the knees and mild degenerative changes at the ankle. PN 03/04/2024: Patient seen and examined. She is not in any acute distress. Seen by wound care and wounds are covered. labs shows improving wbc: 11.1 and she is on vancomycin and Cefepime. PN: 03/05/2024: Patient is seen and examined today. She is still lying in bed with a any movement. Patient is saw sensory for to any form of touch. She does not want anyone to touch her wound with a any pain medication because she is she is in so much pain. Of note, her blood pressure is also running low since yesterday. This morning, it was 110/39 had gradually improved were so the mean blood pressure 122/53. We are holding patient off of morphine or [place] at this time. For pain, we will probably give her IV Toradol 30 mg IV Q6hrs prn.. Objective vital signs Vital Sign Date Time Temp Pulse Resp B/P (MAP) Pulse Ox O2 Delivery O2 Flow Rate FiO2 03/05/24 12:07 98.6 64 20 122/51 (74) 97 98.6 03/04/24 20:00 Nasal Cannula* 3 32 Total Intake and Output 03/04/24 03/04/24 03/05/24 15:00 23:00 07:00 Intake Total 300 ml 575 ml 500 ml Output Total 350 ml 400 ml Balance 300 ml 225 ml 100 ml medications Current Medications Medications Dose Ordered Sig/Kymberly Route Start Time Stop Time Status Last Admin Dose Admin Morphine Sulfate 4 mg Q4HPRN PRN IV 03/01/24 21:45 03/04/24 05:11 4 MG Ondansetron HCl 4 mg Q4HPRN PRN IV 03/01/24 21:45 03/01/24 22:15 4 MG Vancomycin HCl 0 ml @ 0 mls/hr UD IV 03/02/24 00:30 Ceftriaxone Sodium 50 ml @ 100 mls/hr DAILY@09 IV 03/02/24 09:00 03/05/24 09:14 100 MLS/HR Acetaminophen 650 mg Q6HP PRN PO 03/02/24 00:30 Acetaminophen/ Hydrocodone Bitart 1 tab Q6HPRN PRN PO 03/02/24 00:30 Hold 03/05/24 09:13 1 TAB Vancomycin HCl 250 ml @ 250 mls/hr Q12H IV 03/02/24 12:00 03/05/24 12:52 250 MLS/HR Dextrose 50 ml UD PRN IV 03/02/24 12:00 Cancel Enoxaparin Sodium 40 mg DAILY SC 03/03/24 10:00 03/05/24 09:15 40 MG Hydromorphone HCl 2 mg DAILY PRN IV 03/03/24 21:00 Ketorolac Tromethamine 15 mg Q8HPRN PRN IV 03/05/24 14:00 03/09/24 14:00 03/05/24 15:34 15 MG Examination General Appearance: Alert, Oriented X3, Cooperative, No acute distress HEENT: Atraumatic, PERRLA, EOMI, Mucous membrane moist/pink Respiratory: Clear to auscultation, Normal air movement Cardiovascular: Regular rate, Normal S1, Normal S2, No murmurs, no chest wall tenderness Abdominal: NO distention, no tenderness, bowel sounds present, no scars noted Extremities: both wrap without any notable discharge; Patient now allowing her legs to be touched or have the wound dressing changed due to pain. Skin: No rashes, No breakdown, No significant lesion Neuro: Normal gait, Normal speech, Strength at 5/5 X4 ext, Normal tone, Sensation intact, Cranial nerves 3-12 NL, Reflexes 2+ Psych/Mental Status: Mental status NL, Mood NL laboratory and microbiology Laboratory Tests 03/05/24 06:30 Test 03/05/24 06:30 Range/Units Serum Glucose 96 74-106 mg/dL Microbiology Date/Time Source Procedure Growth Status 03/02/24 05:20 Foot Gram Stain - Final Resulted 03/02/24 05:20 Wound Culture - Preliminary Klebsiella oxytoca Resulted 03/02/24 03:35 Voided Urine Urine Culture - Final Complete 03/01/24 15:50 Blood Blood Culture - Preliminary NO GROWTH AFTER 72 HOURS OF INCUBATION. Resulted Problem List/Assessment/Plan Problem List/Assessment/Plan Assessment Sepsis secondary to cellulitis, bilateral Cellulitis, on bilateral lower limb from ankle up to the mid gamble Stasis dermatitis / lymphedema Bleeding varicose vein History of varicose vein Morbid obesity BMI 44.2 Lactic acidosis Acute blood loss anemia likely from the wound site Mild hyponatremia Osteoarthritis of the knee Hyperglycemia Plan Continue Vancomycin and ceftriaxone IV normal saline bolus and maintenance Wound care following Wound Dressing Pain management; IV Toradol 30 mg IV Q6hrs prn. repeat cbc and cmp in the morning Diet: Regular DVT prophylasix: LOVENOX Code status: DNR Goal of care discussed for more than 35 minutes Case and plan discussed and reviewed with Dr. Anderson Plan discussed with: Patient My Orders My Orders Orders - SARAH WASSERMAN RESIDENT Procedure Category Date Status Time Ketorolac Injection PHA 03/05/24 In Process (Toradol Injection) 14:00 Dietary Evaluation Review Recommendations by RD: Protein Supplementation Comments: 1) Initiate Titus @ 1 pk bid 2) Initiate vitamin C @ 500 mg bid 3) Initiate zinc sulfate @ 220 mg qd 4) Continue to promote good PO intake and monitor wound Expected Outcomes/Goals: 1) appetite and labs to improve 2) skin integrity to improve 3) f/u in 3-5 days Date of Service: Mar 05, 2024 Billing Provider: ONIEL ANDERSON MD Common Visit Codes: [id number] INP/OBS CARE(HIGH) SARAH WASSERMAN RESIDENT Mar 05, 2024 15:52 ONIEL ANDERSON MD Mar 06, 2024 10:13
[2024-03-05] MEDS: ACETAMINOPHEN 325 MG TAB PO PRN (19:55)
[2024-03-06] VITALS (7 sets, daily range): BP systolic 107–134; BP diastolic 33–84; PULSE 64–72; RESP 17–19; TEMP 98.2–98.9; O2SAT 91–100
[2024-03-06 07:45] LABS: Basophils # (auto) 0.1 10 ^3/uL (0-0.2); Basophils % (auto) 0.9 % (0.0-2.0); Eosinophils # (auto) 0.3 10 ^3/uL (0-0.8); Eosinophils % (auto) 2.4 % (0.0-7.0); Hematocrit 26.2 % (36.0-46.0); Hemoglobin 8.6 g/dL (12.2-16.2); Lymphocytes % (auto) 15.3 % (10.0-50.0); Mean Corpuscular Hemoglobin 29.7 pg (28.0-32.0); Monocytes # (auto) 1.3 10 ^3/uL (0-1.3); Monocytes % (auto) 10.5 % (0.0-12.0); Neutrophils % (auto) 70.9 % (37.0-80.0); Platelet Count (auto) 299 10^3/uL (140-450); Red Blood Cells 2.92 10^6/uL (4.0-5.20); Red Cell Distribution Width 13.7 % (11.8-14.3); White Blood Cell 12.8 10^3/uL (4.4-10.8)
[2024-03-06] MEDS: GABAPENTIN 100 MG CAP PO SCH (17:35)
[2024-03-06] MEDS: HYDROmorphone HCL 2 MG/ML VL/or syr IV PRN (17:37)
--- NOTE | 2024-03-06 18:38 | MEDREC ---
[facility] ASP Intervention Section I [facility] ASP Intervention: Deescalate AB based on CS (PLEASE CONSIDER DE-ESCALATE VANCOMYCIN BASED ON FOOT CULTURE) JUJU SUTTON Mar 06, 2024 18:38
--- NOTE | 2024-03-06 19:24 | DVHPNRES ---
Progress Note Date Seen: Mar 06, 2024 Resident Creating Document: SARAH WASSERMAN RESIDENT Has the PT tested + for MRSA If YES, has PT been informed?: No Medical Necessity Reason Pt with a Central, PICC or Fol: No Medical Necessity Reason bilateral stasis dermatitis cellulitis Subjective Review of Systems This is a 68-year-old female with past medical history of osteoarthritis of the knee, varicose vein and status dermatitis came to the hospital because of leg swelling, open wounds and bleeding. Per patient, she has had bilateral lower limb dermatitis for the past 5 year that became worse over the 1 months. At first, she developed blister on lower limb which later ruptured and start oozing and bleeding on the left leg. She also complained of bilateral lower limb pain, burning sensation and heaviness. Due to osteoarthritis of the knee, she is limited in he mobility and uses a walker or wheelchair for the mobility. Patient reports, that she follows spiritual therapist recommendation for the dermatitis (ozone therapy), and she has not seen her PCP within last 6 years. Patient denies fever, cough, chest pain, shortness of breath, or any recent changes in bowel and bladder movement. Initial vitals revealed temperature of 98.4, pulse of 83, respirations 17 blood pressure 128/45, and pulse oximetry was 95 on room air. Lab work revealed WBC of 26.5, with a hemoglobin of 40.2 lactic acid of 3.2. HISTORY DOPPLER was negative for DVT. CT legs shows Bilateral moderate tricompartmental osteoarthropathy of the knees and mild degenerative changes at the ankle. PN 03/04/2024: Patient seen and examined. She is not in any acute distress. Seen by wound care and wounds are covered. labs shows improving wbc: 11.1 and she is on vancomycin and Cefepime. PN: 03/05/2024: Patient is seen and examined today. She is still lying in bed with a any movement. Patient is saw sensory for to any form of touch. She does not want anyone to touch her wound with a any pain medication because she is she is in so much pain. Of note, her blood pressure is also running low since yesterday. This morning, it was 110/39 had gradually improved were so the mean blood pressure 122/53. We are holding patient off of morphine or [place] at this time. For pain, we will probably give her IV Toradol 30 mg IV Q6hrs prn.. PN: 03/06/2024: Patient examined today with family present. Patient is unable to get out of bed because she complains of pain with bed touch varus minimal. Yesterday patient was given Toradol to help her the pain come down so that she can have wound changed but that did not happen. plan is to add gabapentin to her regimen at least the pain control. Patient can continue treatment with IV antibiotics at a snf where patient was be able to get PT once she is stable and can be more to get some movement. Objective vital signs Vital Sign Date Time Temp Pulse Resp B/P (MAP) Pulse Ox O2 Delivery O2 Flow Rate FiO2 03/06/24 18:07 70 20 129/38 03/06/24 17:33 98.9 99 98.9 03/06/24 08:00 Nasal Cannula* 3 32 Total Intake and Output 03/05/24 03/05/24 03/06/24 15:00 23:00 07:00 Intake Total 950 ml 850 ml Output Total 1200 ml 2150 ml Balance -250 ml -1300 ml medications Current Medications Medications Dose Ordered Sig/Kymberly Route Start Time Stop Time Status Last Admin Dose Admin Morphine Sulfate 4 mg Q4HPRN PRN IV 03/01/24 21:45 03/06/24 13:10 4 MG Ondansetron HCl 4 mg Q4HPRN PRN IV 03/01/24 21:45 03/01/24 22:15 4 MG Ceftriaxone Sodium 50 ml @ 100 mls/hr DAILY@09 IV 03/02/24 09:00 03/06/24 09:09 100 MLS/HR Acetaminophen 650 mg Q6HP PRN PO 03/02/24 00:30 03/05/24 19:55 650 MG Acetaminophen/ Hydrocodone Bitart 1 tab Q6HPRN PRN PO 03/02/24 00:30 Hold 03/05/24 09:13 1 TAB Dextrose 50 ml UD PRN IV 03/02/24 12:00 Cancel Enoxaparin Sodium 40 mg DAILY SC 03/03/24 10:00 03/06/24 09:10 40 MG Hydromorphone HCl 2 mg DAILY PRN IV 03/03/24 21:00 03/06/24 17:37 2 MG Ketorolac Tromethamine 15 mg Q8HPRN PRN IV 03/05/24 14:00 03/09/24 14:00 03/06/24 09:10 15 MG Gabapentin 100 mg QID PO 03/06/24 18:00 03/06/24 17:35 100 MG Clindamycin Phosphate 50 ml @ 50 mls/hr Q8HR IV 03/06/24 22:00 UNV Examination General Appearance: Alert, Oriented X3, Cooperative, No acute distress HEENT: Atraumatic, PERRLA, EOMI, Mucous membrane moist/pink Respiratory: Clear to auscultation, Normal air movement Cardiovascular: Regular rate, Normal S1, Normal S2, No murmurs, no chest wall tenderness Abdominal: NO distention, no tenderness, bowel sounds present, no scars noted Extremities: both wrap without any notable discharge; Patient now allowing her legs to be touched or have the wound dressing changed due to pain. Skin: No rashes, No breakdown, No significant lesion Neuro: Normal gait, Normal speech, Strength at 5/5 X4 ext, Normal tone, Sensation intact, Cranial nerves 3-12 NL, Reflexes 2+ Psych/Mental Status: Mental status NL, Mood NL laboratory and microbiology Laboratory Tests 03/06/24 06:55 03/05/24 06:30 Test 03/05/24 06:30 Range/Units Serum Glucose 96 74-106 mg/dL Microbiology Date/Time Source Procedure Growth Status 03/02/24 05:20 Foot Gram Stain - Final Complete 03/02/24 05:20 Wound Culture - Final Klebsiella oxytoca Alcaligenes faecalis Staphylococcus aureus Proteus mirabilis Complete 03/02/24 03:35 Voided Urine Urine Culture - Final Complete 03/01/24 15:50 Blood Blood Culture - Final NO GROWTH AFTER 5 DAYS OF INCUBATION. Complete Problem List/Assessment/Plan Problem List/Assessment/Plan Assessment Sepsis secondary to cellulitis, bilateral Cellulitis, on bilateral lower limb from ankle up to the mid gamble Stasis dermatitis / lymphedema Bleeding varicose vein History of varicose vein Morbid obesity BMI 44.2 Lactic acidosis Acute blood loss anemia likely from the wound site Mild hyponatremia Osteoarthritis of the knee Hyperglycemia Plan Continue ceftriaxone Add Clindamycin ( from as culture and sensitivity) IV normal saline bolus and maintenance Wound care following Wound Dressing Pain management; IV Toradol 30 mg IV Q6hrs prn Gabapentin 100 mg q6hrs repeat cbc and bmp in the morning Diet: Regular DVT prophylasix: LOVENOX Code status: DNR Goal of care discussed for more than 25 minutes Case and plan discussed and reviewed with Dr. Anderson Plan discussed with: Patient My Orders My Orders Orders - SARAH WASSERMAN Procedure Category Date Status Time Gabapentin Capsule PHA 03/06/24 In Process (Neurontin Capsule) 18:00 Clindamycin 300mg Iv PHA 03/06/24 Logged (Cleocin Iv) 22:00 Dietary Evaluation Review Recommendations by RD: Protein Supplementation Comments: 1) Initiate Titus @ 1 pk bid 2) Initiate vitamin C @ 500 mg bid 3) Initiate zinc sulfate @ 220 mg qd 4) Continue to promote good PO intake and monitor wound Expected Outcomes/Goals: 1) appetite and labs to improve 2) skin integrity to improve 3) f/u in 3-5 days Date of Service: Mar 06, 2024 Billing Provider: ONIEL ANDERSON MD Common Visit Codes: [id number] INP/OBS CARE(HIGH) SARAH WASSERMAN RESIDENT Mar 06, 2024 19:24 ONIEL ANDERSON MD Mar 07, 2024 12:04
[2024-03-06] MEDS: CLINDAMYCIN 300MG IV 50 ML IV ONE (20:24)
[2024-03-07] VITALS (8 sets, daily range): BP systolic 104–127; BP diastolic 37–67; PULSE 62–73; RESP 15–20; TEMP 98.1–99.4; O2SAT 97–100
[2024-03-07] MEDS: CLINDAMYCIN 300MG IV 50 ML IV SCH (05:34)
[2024-03-07 10:04] LABS: Chloride 100 mmol/L (98-107); Potassium 4.2 mmol/L (3.5-5.1); Sodium 137 mmol/L (136-145)
[2024-03-07 10:05] LABS: Anion Gap 7 (5-15); Carbon Dioxide 30 mmol/L (20-31)
[2024-03-07 10:06] LABS: Calcium 9.1 mg/dL (8.7-10.4)
[2024-03-07 10:11] LABS: BUN/Creatinine Ratio 18.8 (10.0-20.0); Blood Urea Nitrogen 12 mg/dL (9-23)
[2024-03-07 10:23] LABS: Glucose 109 mg/dL (74-106)
[2024-03-07 10:35] LABS: Basophils # (auto) 0.1 10 ^3/uL (0-0.2); Basophils % (auto) 0.7 % (0.0-2.0); Eosinophils # (auto) 0.3 10 ^3/uL (0-0.8); Eosinophils % (auto) 2.3 % (0.0-7.0); Hematocrit 28.7 % (36.0-46.0); Hemoglobin 9.3 g/dL (12.2-16.2); Lymphocytes # (auto) 1.5 10 ^3/uL (0.4-5.4); Lymphocytes % (auto) 13.7 % (10.0-50.0); Mean Corpuscular Hemoglobin 29.1 pg (28.0-32.0); Mean Corpuscular Hgb Conc. 32.3 g/dL (32.0-36.0); Monocytes # (auto) 1.2 10 ^3/uL (0-1.3); Monocytes % (auto) 10.4 % (0.0-12.0); Neutrophils # (auto) 8.1 10 ^3/uL (1.6-8.6); Neutrophils % (auto) 72.9 % (37.0-80.0); Platelet Count (auto) 343 10^3/uL (140-450); Red Blood Cells 3.19 10^6/uL (4.0-5.20); White Blood Cell 11.2 10^3/uL (4.4-10.8)
--- NOTE | 2024-03-07 22:45 | DVHPNRES ---
Progress Note Date Seen: Mar 07, 2024 Resident Creating Document: SARAH WASSERMAN RESIDENT Has the PT tested + for MRSA If YES, has PT been informed?: No Medical Necessity Reason Pt with a Central, PICC or Fol: No Medical Necessity Reason bilateral leg pain Subjective Review of Systems This is a 68-year-old female with past medical history of osteoarthritis of the knee, varicose vein and status dermatitis came to the hospital because of leg swelling, open wounds and bleeding. Per patient, she has had bilateral lower limb dermatitis for the past 5 year that became worse over the 1 months. At first, she developed blister on lower limb which later ruptured and start oozing and bleeding on the left leg. She also complained of bilateral lower limb pain, burning sensation and heaviness. Due to osteoarthritis of the knee, she is limited in he mobility and uses a walker or wheelchair for the mobility. Patient reports, that she follows spiritual therapist recommendation for the dermatitis (ozone therapy), and she has not seen her PCP within last 6 years. Patient denies fever, cough, chest pain, shortness of breath, or any recent changes in bowel and bladder movement. Initial vitals revealed temperature of 98.4, pulse of 83, respirations 17 blood pressure 128/45, and pulse oximetry was 95 on room air. Lab work revealed WBC of 26.5, with a hemoglobin of 40.2 lactic acid of 3.2. HISTORY DOPPLER was negative for DVT. CT legs shows Bilateral moderate tricompartmental osteoarthropathy of the knees and mild degenerative changes at the ankle. PN 03/04/2024: Patient seen and examined. She is not in any acute distress. Seen by wound care and wounds are covered. labs shows improving wbc: 11.1 and she is on vancomycin and Cefepime. PN: 03/05/2024: Patient is seen and examined today. She is still lying in bed with a any movement. Patient is saw sensory for to any form of touch. She does not want anyone to touch her wound with a any pain medication because she is she is in so much pain. Of note, her blood pressure is also running low since yesterday. This morning, it was 110/39 had gradually improved were so the mean blood pressure 122/53. We are holding patient off of morphine or [place] at this time. For pain, we will probably give her IV Toradol 30 mg IV Q6hrs prn.. PN: 03/06/2024: Patient examined today with family present. Patient is unable to get out of bed because she complains of pain with bed touch varus minimal. Yesterday patient was given Toradol to help her the pain come down so that she can have wound changed but that did not happen. plan is to add gabapentin to her regimen at least the pain control. Patient can continue treatment with IV antibiotics at a snf where patient was be able to get PT once she is stable and can be more to get some movement. PN 03/07/2024: Patient is seen and examined today. She is doing better. She received gabapentin and Toradol which helped with the pain and she was able to have her wound dressed. Her WBCs are trending downward. Overall she is stable. I have discussed with the patient that the only thing she needs right now is wound care, IV antibiotics and PT. I also discussed with the patient if she is open to going to a SNF to continue with wound care and PT. Patient agreed agreed to go to SNF. All information have been communicated with the bilingual patient support caseworker. Plan now is to order for PICC/Midline and will discharge the patient. Objective vital signs Vital Sign Date Time Temp Pulse Resp B/P (MAP) Pulse Ox O2 Delivery O2 Flow Rate FiO2 03/07/24 21:00 98.2 69 20 104/37 (59) 97 98.2 03/07/24 20:00 Nasal Cannula* 3 32 Total Intake and Output 03/06/24 03/06/24 03/07/24 15:00 23:00 07:00 Intake Total 50 ml 400 ml 700 ml Output Total 1700 ml 1500 ml Balance 50 ml -1300 ml -800 ml medications Current Medications Medications Dose Ordered Sig/Kymberly Route Start Time Stop Time Status Last Admin Dose Admin Morphine Sulfate 4 mg Q4HPRN PRN IV 03/01/24 21:45 03/07/24 13:40 4 MG Ondansetron HCl 4 mg Q4HPRN PRN IV 03/01/24 21:45 03/01/24 22:15 4 MG Ceftriaxone Sodium 50 ml @ 100 mls/hr DAILY@09 IV 03/02/24 09:00 03/07/24 09:24 100 MLS/HR Acetaminophen 650 mg Q6HP PRN PO 03/02/24 00:30 03/07/24 21:44 650 MG Acetaminophen/ Hydrocodone Bitart 1 tab Q6HPRN PRN PO 03/02/24 00:30 Hold 03/05/24 09:13 1 TAB Dextrose 50 ml UD PRN IV 03/02/24 12:00 Cancel Enoxaparin Sodium 40 mg DAILY SC 03/03/24 10:00 03/07/24 09:25 40 MG Hydromorphone HCl 2 mg DAILY PRN IV 03/03/24 21:00 03/06/24 17:37 2 MG Ketorolac Tromethamine 15 mg Q8HPRN PRN IV 03/05/24 14:00 03/09/24 14:00 03/07/24 21:45 15 MG Gabapentin 100 mg QID PO 03/06/24 18:00 03/07/24 21:37 100 MG Clindamycin Phosphate 50 ml @ 50 mls/hr Q8HR IV 03/07/24 06:00 03/07/24 21:36 50 MLS/HR Examination HEENT: Atraumatic, PERRLA, EOMI, Mucous membrane moist/pink Respiratory: Clear to auscultation, Normal air movement Cardiovascular: Regular rate, Normal S1, Normal S2, No murmurs, no chest wall tenderness Abdominal: NO distention, no tenderness, bowel sounds present, no scars noted Extremities: both wrap without any notable discharge; DRESSING CHANGE YESTERDAY03/06/2024 Skin: No rashes, No breakdown, No significant lesion Neuro: Normal gait, Normal speech, Strength at 5/5 X4 ext, Normal tone, Sensation intact, Cranial nerves 3-12 NL, Reflexes 2+ Psych/Mental Status: Mental status NL, Mood NL laboratory and microbiology Laboratory Tests 03/07/24 08:30 Test 03/07/24 08:30 Range/Units Serum Glucose 109 H 74-106 mg/dL Microbiology Date/Time Source Procedure Growth Status 03/02/24 05:20 Foot Gram Stain - Final Complete 03/02/24 05:20 Wound Culture - Final Klebsiella oxytoca Alcaligenes faecalis Staphylococcus aureus Proteus mirabilis Complete 03/02/24 03:35 Voided Urine Urine Culture - Final Complete 03/01/24 15:50 Blood Blood Culture - Final NO GROWTH AFTER 5 DAYS OF INCUBATION. Complete Problem List/Assessment/Plan Problem List/Assessment/Plan Assessment Sepsis secondary to cellulitis, bilateral Cellulitis, on bilateral lower limb from ankle up to the mid gamble Stasis dermatitis / lymphedema Bleeding varicose vein History of varicose vein Morbid obesity BMI 44.2 Lactic acidosis Acute blood loss anemia likely from the wound site Mild hyponatremia Osteoarthritis of the knee Hyperglycemia Plan Continue ceftriaxone Add Levofloxacin ( from as culture and sensitivity) IV normal saline bolus and maintenance Wound care following Wound Dressing Pain management; IV Toradol 30 mg IV Q6hrs prn Gabapentin 100 mg q6hrs repeat cbc and bmp in the morning PICC in preparation for SNF and antibiotic continuation, Patient will also received PT there Diet: Regular DVT prophylasix: LOVENOX Code status: DNR Goal of care discussed for more than 25 minutes Case and plan discussed and reviewed with Dr. Anderson Plan discussed with: Patient My Orders My Orders Orders - SARAH WASSERMAN Procedure Category Date Status Time * Pump Assembler CONS 03/07/24 Transmitted Consult 13:45 * Picc Line Consult CONS 03/07/24 Transmitted 17:30 Dietary Evaluation Review Recommendations by RD: Protein Supplementation Comments: 1) Initiate Titus @ 1 pk bid 2) Initiate vitamin C @ 500 mg bid 3) Initiate zinc sulfate @ 220 mg qd 4) Continue to promote good PO intake and monitor wound Expected Outcomes/Goals: 1) appetite and labs to improve 2) skin integrity to improve 3) f/u in 3-5 days Date of Service: Mar 07, 2024 Billing Provider: ONIEL ANDERSON MD Common Visit Codes: [id number] INP/OBS CARE(HIGH) SARAH WASSERMAN Mar 07, 2024 22:44 ONIEL ANDERSON MD Mar 11, 2024 06:48
[2024-03-08] VITALS (9 sets, daily range): BP systolic 110–122; BP diastolic 34–93; PULSE 60–79; RESP 16–20; TEMP 98–99.5; O2SAT 92–100
[2024-03-08 06:02] LABS: Basophils # (auto) 0.1 10 ^3/uL (0-0.2); Basophils % (auto) 0.6 % (0.0-2.0); Eosinophils # (auto) 0.4 10 ^3/uL (0-0.8); Eosinophils % (auto) 3.5 % (0.0-7.0); Hematocrit 28.3 % (36.0-46.0); Hemoglobin 9.2 g/dL (12.2-16.2); Lymphocytes # (auto) 1.4 10 ^3/uL (0.4-5.4); Lymphocytes % (auto) 12.8 % (10.0-50.0); Mean Corpuscular Hemoglobin 28.8 pg (28.0-32.0); Mean Corpuscular Hgb Conc. 32.4 g/dL (32.0-36.0); Monocytes # (auto) 1.1 10 ^3/uL (0-1.3); Monocytes % (auto) 10.5 % (0.0-12.0); Neutrophils # (auto) 7.9 10 ^3/uL (1.6-8.6); Neutrophils % (auto) 72.6 % (37.0-80.0); Platelet Count (auto) 364 10^3/uL (140-450); Red Blood Cells 3.18 10^6/uL (4.0-5.20); Red Cell Distribution Width 13.9 % (11.8-14.3); White Blood Cell 10.9 10^3/uL (4.4-10.8)
[2024-03-08 06:13] LABS: Chloride 102 mmol/L (98-107); Potassium 4.6 mmol/L (3.5-5.1); Sodium 138 mmol/L (136-145)
[2024-03-08 06:14] LABS: Anion Gap 6 (5-15); Calcium 9.2 mg/dL (8.7-10.4); Carbon Dioxide 30 mmol/L (20-31)
[2024-03-08 06:20] LABS: BUN/Creatinine Ratio 25.4 (10.0-20.0); Blood Urea Nitrogen 16 mg/dL (9-23); Glucose 102 mg/dL (74-106)
[2024-03-08] MEDS: GABAPENTIN 300 MG CAP PO SCH (08:13)
[2024-03-08] MEDS: levoFLOXacin 500MG 100 ML IV SCH (09:27)
--- NOTE | 2024-03-08 12:04 | DVHPN2 ---
Subjective The patient is seen and examined at bedside. No complaint today. Waiting for [facility] facility placement. Reviewed: Care Plan, H&P, Labs, Medications, Previous Orders, Radiology Changes from previous H/P or p: No Changes Objective Vitals Vital Signs Date Time Temp Pulse Resp B/P (MAP) Pulse Ox O2 Delivery O2 Flow Rate FiO2 03/08/24 09:37 63 20 117/49 03/08/24 09:00 98.6 100 98.6 03/07/24 20:00 Nasal Cannula* 3 32 Intake/Output Intake and Output 03/08/24 07:00 Intake Total 1205 ml Output Total 2300 ml Balance -1095 ml Intake Oral 1155 ml IV Total 50 ml Output Urine Total 2300 ml # Bowel Movements 1 General Appearance: Alert, Oriented X3, Cooperative, No acute distress, Other (Morbidly obese) HEENT: Atraumatic Lungs: Clear to auscultation, Normal air movement Cardiovascular: Regular rate, Normal S1, Normal S2 Abdomen: Normal bowel sounds, Soft, No tenderness Genitourinary: Other ([place]) Neuro: Normal speech, Cranial nerves 3-12 NL Skin: Other (Dressed lower extremities) Psych/Mental Status: Mental status NL, Mood NL Medications Current Medications Medications Dose Ordered Sig/Kymberly Route Start Time Stop Time Status Last Admin Dose Admin Morphine Sulfate 4 mg Q4HPRN PRN IV 03/01/24 21:45 03/08/24 09:37 4 MG Ondansetron HCl 4 mg Q4HPRN PRN IV 03/01/24 21:45 03/01/24 22:15 4 MG Ceftriaxone Sodium 50 ml @ 100 mls/hr DAILY@09 IV 03/02/24 09:00 03/08/24 08:13 100 MLS/HR Acetaminophen 650 mg Q6HP PRN PO 03/02/24 00:30 03/07/24 21:44 650 MG Acetaminophen/ Hydrocodone Bitart 1 tab Q6HPRN PRN PO 03/02/24 00:30 Hold 03/05/24 09:13 1 TAB Dextrose 50 ml UD PRN IV 03/02/24 12:00 Cancel Enoxaparin Sodium 40 mg DAILY SC 03/03/24 10:00 03/08/24 09:27 40 MG Hydromorphone HCl 2 mg DAILY PRN IV 03/03/24 21:00 03/08/24 03:32 2 MG Ketorolac Tromethamine 15 mg Q8HPRN PRN IV 03/05/24 14:00 03/09/24 14:00 03/07/24 21:45 15 MG Levofloxacin/ Dextrose 100 ml @ 100 mls/hr DAILY IV 03/08/24 10:00 03/08/24 09:27 100 MLS/HR Gabapentin 300 mg TID PO 03/08/24 06:00 03/08/24 08:13 300 MG Laboratory Results Laboratory Tests 03/08/24 05:24 Chemistry Test 03/08/24 05:24 Calcium Level 9.2 mg/dL (8.7-10.4) Urinalysis Test 03/02/24 01:48 Urine Color Yellow (Yellow) Urine Clarity Turbid (Clear) H Urine pH 5.5 (5.0-9.0) Urine Specific [place] 1.039 (1.001-1.035) Urine Protein 1+ (Negative) H Urine Ketones 1+ (Negative) H Urine Blood 2+ /uL (Negative) H Urine Nitrite Negative (Negative) Urine Bilirubin Negative (Negative) Urine Urobilinogen Normal mg/dL (Negative) Urine Leukocyte Esterase Negative /uL (Negative) Urine RBC 15 /hpf (0 - 4) Urine Microscopic WBC 2 /HPF (0-5) Urine Squamous Epithelial Cells Few /hpf (<5) Urine Bacteria Few /hpf (None Seen) H Urine Mucus Few (None Seen) Urine Glucose Normal mg/dL (Normal) Microbiology Microbiology Date/Time Source Procedure Growth Status 03/02/24 05:20 Foot Gram Stain - Final Complete 03/02/24 05:20 Wound Culture - Final Klebsiella oxytoca Alcaligenes faecalis Staphylococcus aureus Proteus mirabilis Complete 03/02/24 03:35 Voided Urine Urine Culture - Final Complete 03/01/24 15:50 Blood Blood Culture - Final NO GROWTH AFTER 5 DAYS OF INCUBATION. Complete Labs and/or images reviewed: Labs reviewed by me Assessment/Plan Assessment/Plan Sepsis secondary to cellulitis, bilateral Cellulitis, on bilateral lower limb from ankle up to the mid gamble Stasis dermatitis / lymphedema Bleeding varicose vein History of varicose vein Morbid obesity BMI 44.2 Lactic acidosis Acute blood loss anemia likely from the wound site Mild hyponatremia Osteoarthritis of the knee Hyperglycemia Plan Continue ceftriaxone Add Levofloxacin ( from as culture and sensitivity) IV normal saline bolus and maintenance Wound care following Wound Dressing Pain management; IV Toradol 30 mg IV Q6hrs prn Gabapentin 100 mg q6hrs repeat cbc and bmp in the morning PICC in preparation for SNF and antibiotic continuation, Patient will also received PT there Plan discussed with: Patient Date of Service: Mar 08, 2024 Billing Provider: ONIEL VICTORIA MD Common Visit Codes: [id number] INP/OBS CARE(HIGH) ONIEL VICTORIA MD Mar 08, 2024 12:04
--- NOTE | 2024-03-08 16:12 | DVHDS2 ---
Discharge Summary Date of Admission Mar 01, 2024 at 22:45 Labs/Diagnostic Data: Laboratory Results Test 03/08/24 05:24 03/05/24 13:10 03/04/24 06:30 03/02/24 05:07 White Blood Count 10.9 10^3/uL (4.4-10.8) Red Blood Count 3.18 10^6/uL (4.0-5.20) Hemoglobin 9.2 g/dL (12.2-16.2) Hematocrit 28.3 % (36.0-46.0) Mean Corpuscular Volume 89.0 fL (80.0-100.0) Mean Corpuscular Hemoglobin 28.8 pg (28.0-32.0) Mean Corpuscular Hemoglobin Concent 32.4 g/dL (32.0-36.0) Red Cell Distribution Width 13.9 % (11.8-14.3) Platelet Count 364 10^3/uL (140-450) Mean Platelet Volume 7.3 fL (6.9-10.8) Neutrophils (%) (Auto) 72.6 % (37.0-80.0) Lymphocytes (%) (Auto) 12.8 % (10.0-50.0) Monocytes (%) (Auto) 10.5 % (0.0-12.0) Eosinophils (%) (Auto) 3.5 % (0.0-7.0) Basophils (%) (Auto) 0.6 % (0.0-2.0) Neutrophils # (Auto) 7.9 10 ^3/uL (1.6-8.6) Lymphocytes # (Auto) 1.4 10 ^3/uL (0.4-5.4) Monocytes # (Auto) 1.1 10 ^3/uL (0-1.3) Eosinophils # (Auto) 0.4 10 ^3/uL (0-0.8) Basophils # (Auto) 0.1 10 ^3/uL (0-0.2) Nucleated Red Blood Cells 0.0 % Sodium Level 138 mmol/L (136-145) Potassium Level 4.6 mmol/L (3.5-5.1) Chloride Level 102 mmol/L (98-107) Carbon Dioxide Level 30 mmol/L (20-31) Anion Gap 6 (5-15) Blood Urea Nitrogen 16 mg/dL (9-23) Creatinine 0.63 mg/dL (0.550-1.02) Glomerular Filtration Rate Calc 95 mL/min (>90) BUN/Creatinine Ratio 25.4 (10.0-20.0) Serum Glucose 102 mg/dL (74-106) Calcium Level 9.2 mg/dL (8.7-10.4) Vancomycin Level Trough 17.0 ug/mL (5-10) Total Bilirubin 0.2 mg/dL (0.2-1.0) Aspartate Amino Transferase (AST) 45 U/L (13-40) Alanine Aminotransferase (ALT) 29 U/L (7-40) Alkaline Phosphatase 56 U/L (46-116) Total Protein 5.5 g/dL (5.7-8.2) Albumin 3.3 g/dL (3.2-4.8) Hemoglobin A1c 5.7 % A1C (<5.7) Test 03/02/24 01:48 03/02/24 00:50 03/01/24 15:50 Urine Color Yellow (Yellow) Urine Clarity Turbid (Clear) Urine pH 5.5 (5.0-9.0) Urine Specific [place] 1.039 (1.001-1.035) Urine Protein 1+ (Negative) Urine Ketones 1+ (Negative) Urine Blood 2+ /uL (Negative) Urine Nitrite Negative (Negative) Urine Bilirubin Negative (Negative) Urine Urobilinogen Normal mg/dL (Negative) Urine Leukocyte Esterase Negative /uL (Negative) Urine RBC 15 /hpf (0 - 4) Urine Microscopic WBC 2 /HPF (0-5) Urine Squamous Epithelial Cells Few /hpf (<5) Urine Bacteria Few /hpf (None Seen) Urine Mucus Few (None Seen) Urine Glucose Normal mg/dL (Normal) Lactic Acid Level 1.1 mmol/L (0.4-2.0) Triglycerides Level 80 mg/dL (< 150) Cholesterol Level 123 mg/dL (< 200) LDL Cholesterol 83 mg/dL (< 100) HDL Cholesterol 34 mg/dL (40-59) Differential Total Cells Counted 100.0 (100) Neutrophils % (Manual) 89 (37.0-80.0) Band Neutrophils % (Manual) 0 Lymphocytes % (Manual) 8 (10.0-50.0) Monocytes % (Manual) 3 (0-12) Eosinophils % (Manual) 0 (0-7) Basophils % (Manual) 0 (0.0-2.0) Metamyelocytes % (manual) 0 Myelocytes % (Manual) 0 Promyelocytes % (Manual) 0 Blast Cells % (Manual) 0 Reactive Lymphocytes 0 Platelet Estimate Adequate Other Laboratory Tests 03/08/24 05:24 Final Diagnosis/Problems List CELLULITIS Discharge Instruct/Medications Activity: No Restrictions, As Tolerated Discharge Statement: "Patient was advised to return to the ER or call 911 if any headaches, dizziness, shortness of breath, chest pain, abdominal pain, bleeding, fevers, or worsening of medical condition. Patient was counseled about treatment plan, medications, possible side effects, patientverbalized understanding. All questions were answered to the best of my ability. This discharge took greater then 30 minutes in planning, reviewing documentation, counseling the patient, and discussing with other team members." ASSESSMENT ASSESSMENT Assessment CELLULITIS ONIEL VICTORIA MD Mar 08, 2024 16:12
[2024-03-09] VITALS (8 sets, daily range): BP systolic 101–122; BP diastolic 39–54; PULSE 62–82; RESP 16–20; TEMP 97.6–98.9; O2SAT 97–99
--- NOTE | 2024-03-09 15:12 | DVHDS2 ---
Discharge Summary Date of Admission Mar 01, 2024 at 22:45 Date of Discharge: Mar 09, 2024 Admitting Diagnosis Sepsis secondary to cellulitis, bilateral Cellulitis, on bilateral lower limb from ankle up to the mid gamble Stasis dermatitis / lymphedema Bleeding varicose vein History of varicose vein Morbid obesity BMI 44.2 Lactic acidosis Acute blood loss anemia likely from the wound site Mild hyponatremia Osteoarthritis of the knee Hyperglycemia Labs/Diagnostic Data: Laboratory Results Test 03/08/24 05:24 03/05/24 13:10 03/04/24 06:30 03/02/24 05:07 White Blood Count 10.9 10^3/uL (4.4-10.8) Red Blood Count 3.18 10^6/uL (4.0-5.20) Hemoglobin 9.2 g/dL (12.2-16.2) Hematocrit 28.3 % (36.0-46.0) Mean Corpuscular Volume 89.0 fL (80.0-100.0) Mean Corpuscular Hemoglobin 28.8 pg (28.0-32.0) Mean Corpuscular Hemoglobin Concent 32.4 g/dL (32.0-36.0) Red Cell Distribution Width 13.9 % (11.8-14.3) Platelet Count 364 10^3/uL (140-450) Mean Platelet Volume 7.3 fL (6.9-10.8) Neutrophils (%) (Auto) 72.6 % (37.0-80.0) Lymphocytes (%) (Auto) 12.8 % (10.0-50.0) Monocytes (%) (Auto) 10.5 % (0.0-12.0) Eosinophils (%) (Auto) 3.5 % (0.0-7.0) Basophils (%) (Auto) 0.6 % (0.0-2.0) Neutrophils # (Auto) 7.9 10 ^3/uL (1.6-8.6) Lymphocytes # (Auto) 1.4 10 ^3/uL (0.4-5.4) Monocytes # (Auto) 1.1 10 ^3/uL (0-1.3) Eosinophils # (Auto) 0.4 10 ^3/uL (0-0.8) Basophils # (Auto) 0.1 10 ^3/uL (0-0.2) Nucleated Red Blood Cells 0.0 % Sodium Level 138 mmol/L (136-145) Potassium Level 4.6 mmol/L (3.5-5.1) Chloride Level 102 mmol/L (98-107) Carbon Dioxide Level 30 mmol/L (20-31) Anion Gap 6 (5-15) Blood Urea Nitrogen 16 mg/dL (9-23) Creatinine 0.63 mg/dL (0.550-1.02) Glomerular Filtration Rate Calc 95 mL/min (>90) BUN/Creatinine Ratio 25.4 (10.0-20.0) Serum Glucose 102 mg/dL (74-106) Calcium Level 9.2 mg/dL (8.7-10.4) Vancomycin Level Trough 17.0 ug/mL (5-10) Total Bilirubin 0.2 mg/dL (0.2-1.0) Aspartate Amino Transferase (AST) 45 U/L (13-40) Alanine Aminotransferase (ALT) 29 U/L (7-40) Alkaline Phosphatase 56 U/L (46-116) Total Protein 5.5 g/dL (5.7-8.2) Albumin 3.3 g/dL (3.2-4.8) Hemoglobin A1c 5.7 % A1C (<5.7) Test 03/02/24 01:48 03/02/24 00:50 03/01/24 15:50 Urine Color Yellow (Yellow) Urine Clarity Turbid (Clear) Urine pH 5.5 (5.0-9.0) Urine Specific [place] 1.039 (1.001-1.035) Urine Protein 1+ (Negative) Urine Ketones 1+ (Negative) Urine Blood 2+ /uL (Negative) Urine Nitrite Negative (Negative) Urine Bilirubin Negative (Negative) Urine Urobilinogen Normal mg/dL (Negative) Urine Leukocyte Esterase Negative /uL (Negative) Urine RBC 15 /hpf (0 - 4) Urine Microscopic WBC 2 /HPF (0-5) Urine Squamous Epithelial Cells Few /hpf (<5) Urine Bacteria Few /hpf (None Seen) Urine Mucus Few (None Seen) Urine Glucose Normal mg/dL (Normal) Lactic Acid Level 1.1 mmol/L (0.4-2.0) Triglycerides Level 80 mg/dL (< 150) Cholesterol Level 123 mg/dL (< 200) LDL Cholesterol 83 mg/dL (< 100) HDL Cholesterol 34 mg/dL (40-59) Differential Total Cells Counted 100.0 (100) Neutrophils % (Manual) 89 (37.0-80.0) Band Neutrophils % (Manual) 0 Lymphocytes % (Manual) 8 (10.0-50.0) Monocytes % (Manual) 3 (0-12) Eosinophils % (Manual) 0 (0-7) Basophils % (Manual) 0 (0.0-2.0) Metamyelocytes % (manual) 0 Myelocytes % (Manual) 0 Promyelocytes % (Manual) 0 Blast Cells % (Manual) 0 Reactive Lymphocytes 0 Platelet Estimate Adequate Other Laboratory Tests 03/08/24 05:24 Brief Hx & Hospital Course: This is a 68 years old female with past medical history osteoarthritis of the knee, varicocele vein and status dermatitis come to the hospital because of lower extremity swelling and bleeding. The patient had bilateral lower extremity dermatitis for five years and worsening for one month. She started having blister at lower limb and later rupture and started oozing with bleeding. Patient had limited mobility due to osteoarthritis. She apparently follow a spiritual therapist which recommend ozone therapy for dermatitis. She had not see a primary care physician over 6 years. The patient was admitted for sepsis and severe cellulitis. CT scan of the leg showed no acute process except cellulitis and degenerative joint disease. CT ankle showed no acute fracture. Ultrasound ruled out DVT is negative for DVT. Ultrasound artery showed limited image due to bandage wrapped around her leg and edema. She was put on IV antibiotic Rocephin and Levaquin. The patient pain management with IV Toradol because she can not tolerate [place]. Patient also had gabapentin 100 mg Q 8 hours. The patient had wound care and changing dressing here in the hospital. The patient was advised to follow up with vein specialist as outpatient for treatment for right varicocele vein. Patient remained very weak and required physical therapy. The patient will be discharged to longterm home facility for more physical therapy to get herself stronger also for wound care. Today I am discharge her home. Advised her to follow up with primary care physician 1-2 weeks. [facility]. Physical exam: HEENT: Normocephalic atraumatic pupils equal react to light and accommodation. Extraocular muscles intact, conjunctiva pink, oropharynx moist, no thrush, no exudate. Lymphatic: No lymphadenopathy Cardiovascular exam: S1, S2 was heard. No murmurs, rubs, gallops Lung: Clear on auscultation bilaterally, no wheeze, rale, rhonchi. GI: Abdominal soft, nondistended, nontenderness, positive bowel sounds. Extremity: No crepitus, cyanosis, edema. Pedal pulses present bilateral. Full range of motion. Skin: Normal turgor, no rash. Psych: Alert, oriented x3. Neurology: No focal deficits, cranial nerve II to XII grossly intact. This medical document was created using an electronic medical record system with [employer] computerized dictation system. Although this document has been carefully reviewed, there may still be some phonetic and typographical errors. These areas are purely typographical due to imperfections of the software programs, and do not reflect any compromise in the patient's medical care. Condition at Discharge: Stable Final Diagnosis/Problems List Sepsis secondary to cellulitis, bilateral Cellulitis, on bilateral lower limb from ankle up to the mid gamble Stasis dermatitis / lymphedema Bleeding varicose vein History of varicose vein Morbid obesity BMI 44.2 Lactic acidosis Acute blood loss anemia likely from the wound site Mild hyponatremia Osteoarthritis of the knee Hyperglycemia Discharge Disposition: [facility] Facility Discharge Instruct/Medications Diet: Cardiac 2g Na,low cholest Activity: No Restrictions, As Tolerated Follow Up/Referral: PCP 1-2 weeks Medications: see med list. Discharge Statement: "Patient was advised to return to the ER or call 911 if any headaches, dizziness, shortness of breath, chest pain, abdominal pain, bleeding, fevers, or worsening of medical condition. Patient was counseled about treatment plan, medications, possible side effects, patientverbalized understanding. All questions were answered to the best of my ability. This discharge took greater then 30 minutes in planning, reviewing documentation, counseling the patient, and discussing with other team members." ASSESSMENT ASSESSMENT Assessment CELLULITIS Date of Service: Mar 09, 2024 Billing Provider: ONIEL VICTORIA MD Common Visit Codes: 09126-JRR/OBS DISCH DAY >30min ONIEL VICTORIA MD Mar 09, 2024 15:12
== END 2024-03-09 21:45 | DRG 871 ==
LOC: ER 13:14 → EDBD 13:14 → OVERFLOW 22:45 → WEST WING 03-02 18:24
PROVIDERS: ADMIT Internal Medicine; ATTEND Internal Medicine
PROC: 05HF33Z Insertion of Infusion Device into Left Cephalic Vein, Percutaneous Approach (ICD-10-PCS; principal; 2024-03-08)
PROC: B54NZZA Ultrasonography of Left Upper Extremity Veins, Guidance (ICD-10-PCS; 2024-03-08)
DX: A41.9 Sepsis, unspecified organism (principal); N17.0 Acute kidney failure with tubular necrosis; L03.115 Cellulitis of right lower limb; L03.116 Cellulitis of left lower limb; D62 Acute posthemorrhagic anemia; E87.1 Hypo-osmolality and hyponatremia; Z68.41 Body mass index [BMI] 40.0-44.9, adult; E87.20 Acidosis, unspecified; Z66 Do not resuscitate; E66.01 Morbid (severe) obesity due to excess calories; I83.12 Varicose veins of left lower extremity with inflammation; I83.11 Varicose veins of right lower extremity with inflammation; R73.9 Hyperglycemia, unspecified; Z74.01 Bed confinement status; Z87.891 Personal history of nicotine dependence
CPT/HCPCS: 36415; 71045; 73700; 80048; 80053; 80061; 80202; 81001; 82565; 83036; 83605; 85007; 85025; 85027; 87040; 87077; 87081; 87086; 87186; 87205; 93925; 93970; 99291; G0378; J1885; J2405; J3490

== ENCOUNTER 2024-07-16 11:12 | Outpatient (CLI) | payer MEDICARE, MEDICAID ==
[2024-07-16 12:14] LABS: Alanine Aminotransferase 21 U/L (7-40); Alkaline Phosphatase 83 U/L (46-116); Anion Gap 9 (5-15); Aspartate Aminotransferase 20 U/L (13-40); BUN/Creatinine Ratio 11.8 (10.0-20.0); Blood Urea Nitrogen 9 mg/dL (9-23); Carbon Dioxide 27 mmol/L (20-31); Chloride 104 mmol/L (98-107); Potassium 4.5 mmol/L (3.5-5.1); Sodium 140 mmol/L (136-145); Total Protein 7.8 g/dL (5.7-8.2)
[2024-07-16 12:15] LABS: Albumin 4.9 g/dL (3.2-4.8); Bilirubin, Total 0.5 mg/dL (0.2-1.0); Calcium 10.6 mg/dL (8.7-10.4); Cholesterol 256 mg/dL (< 200); Glucose 113 mg/dL (74-106); HDL Cholesterol 47 mg/dL (40-59); LDL Cholesterol 192 mg/dL (< 100); Triglycerides 207 mg/dL (< 150)
== END 2024-07-16 17:00 | disposition home or self-care (01) ==
LOC: LAB 11:12
PROVIDERS: ATTEND Internal Medicine
DX: E78.5 Hyperlipidemia, unspecified (principal); R73.03 Prediabetes; E66.9 Obesity, unspecified; D64.9 Anemia, unspecified; Z12.11 Encounter for screening for malignant neoplasm of colon
CPT/HCPCS: 36415; 80053; 80061; 83036; 84443

== ENCOUNTER 2024-07-23 11:00 | Outpatient (CLI) | payer MEDICARE, MEDICAID | END 2024-07-23 17:00 | disposition home or self-care (01) | LOC: LAB 11:00 | PROVIDERS: ATTEND Internal Medicine | DX: E78.5 Hyperlipidemia, unspecified (principal); E66.9 Obesity, unspecified; D64.9 Anemia, unspecified; R73.03 Prediabetes; Z12.11 Encounter for screening for malignant neoplasm of colon | CPT/HCPCS: 82270 ==

== ENCOUNTER 2024-07-23 12:59 | Outpatient (CLI) | payer MEDICARE, MEDICAID ==
[2024-07-23 13:29] LABS: Urine Amorphous Crystal FEW /hpf (None Seen); Urine Bacteria FEW /hpf (None Seen); Urine Blood Negative /uL (Negative); Urine Budding Yeast MODERATE /hpf (None Seen); Urine Clarity Ex.Turbid (Clear); Urine Color Colorless (Yellow); Urine Mucus FEW (None Seen); Urine Protein, UAD Negative (Negative); Urine Specific Gravity 1.016 (1.001-1.035); Urine Squamous Epithelial Cell FEW /hpf (<5); Urine Urobilinogen Normal (Negative); Urine WBC 2 /HPF (0-5)
[2024-07-23 14:07] LABS: Creatinine, Urine 68.56 mg/dL (30.0-125.0)
== END 2024-07-23 17:00 | disposition home or self-care (01) ==
LOC: LAB 12:59
PROVIDERS: ATTEND Internal Medicine
DX: E78.5 Hyperlipidemia, unspecified (principal); E66.9 Obesity, unspecified; D64.9 Anemia, unspecified; R73.03 Prediabetes; Z12.11 Encounter for screening for malignant neoplasm of colon
CPT/HCPCS: 36415; 81001; 82043; 82570

== ENCOUNTER → 2024-08-14 | Outpatient (CLI) | payer MEDICARE, MEDICAID ==
[2024-08-14 16:02] LABS: Alanine Aminotransferase 20 U/L (7-40); Alkaline Phosphatase 78 U/L (46-116); Total Protein 7.1 g/dL (5.7-8.2)
[2024-08-14 16:03] LABS: Albumin 4.5 g/dL (3.2-4.8); Bilirubin, Total 0.3 mg/dL (0.2-1.0)
[2024-08-14 16:04] LABS: Bilirubin, Direct < 0.1 mg/dL (<0.3)
== END | disposition home or self-care (01) ==
LOC: LAB 14:56
PROVIDERS: ATTEND Internal Medicine
DX: D36.9 Benign neoplasm, unspecified site (principal); I73.9 Peripheral vascular disease, unspecified
CPT/HCPCS: 36415; 80076

== ENCOUNTER 2024-09-23 11:35 | Outpatient (CLI) | payer MEDICARE, MEDICAID ==
[2024-09-23 12:27] LABS: Alanine Aminotransferase 20.0 U/L (7-40); Albumin 4.5 g/dL (3.2-4.8); Alkaline Phosphatase 75.0 U/L (46-116); Bilirubin, Direct 0.1 mg/dL (<0.3); Cholesterol 230.0 mg/dL (< 200); HDL Cholesterol 53.0 mg/dL (40-59); Total Protein 7.4 g/dL (5.7-8.2); Triglycerides 193.0 mg/dL (< 150)
[2024-09-23 12:28] LABS: Bilirubin, Total 0.5 mg/dL (0.2-1.0)
== END 2024-09-23 17:00 | disposition home or self-care (01) ==
LOC: LAB 11:35
PROVIDERS: ATTEND Internal Medicine
DX: E78.5 Hyperlipidemia, unspecified (principal); D36.9 Benign neoplasm, unspecified site; R73.03 Prediabetes
CPT/HCPCS: 36415; 80061; 80076

== ENCOUNTER 2024-12-18 11:29 | Outpatient (CLI) | payer MEDICARE, MEDICAID ==
[2024-12-18 12:19] LABS: Triglycerides 161 mg/dL (< 150)
[2024-12-18 12:21] LABS: Cholesterol 202 mg/dL (< 200); HDL Cholesterol 55 mg/dL (40-59)
== END 2024-12-18 17:00 | disposition home or self-care (01) ==
LOC: LAB 11:29
PROVIDERS: ATTEND Internal Medicine
DX: E78.5 Hyperlipidemia, unspecified (principal); R73.03 Prediabetes
CPT/HCPCS: 36415; 80061; 83036